=== PATIENT | male | born 1965 | race Caucasian/White ===

== ENCOUNTER 2017-05-02 09:27 | Inpatient (IN) | payer OTHER ==
[~2017-05-02] VITALS: Ht 198.1 cm; Wt 134.5 kg
[2017-05-02 09:36] VITALS: BP 136/86; PULSE 107; RESP 16; O2SAT 98
--- NOTE | 2017-05-02 09:38 | ED.REPORT ---
HPI-Chest Pain 40 and Over Date of Service May 02, 2017 ED Provider: Mary Peck MD The pt is a 52 y/o male w/ a hx of HTN and diabetes presenting to the ED complaining of chest tightness onset 0830 this morning. He is also experiencing diaphoresis, and R rib pain which decreased when he forced himself to vomit. He rates the chest pain as a 4/10 and the R rib pain being more severe. Denies SOB. The pt was seen at [facility] due to 3.5 weeks of constipation and was at [facility] yesterday for 24 hours w/ flatulence, and diarrhea. There was no blood in his stool. Nursing Notes Stated Complaint: CHEST PAIN AND TIGHTNESS Chief Complaint: Chest tightness Nursing Notes Reviewed: Yes Allergies: Uncoded Allergies: CONTRAST USED FOR HEART STUDY (Allergy, Unknown, Nausea and dizziness, 05/02) General Time Seen by MD: 09:37 Chief Complaint Other (Chest tightness) Hx Obtained From: Patient Arrived By: Walk-in Sudden in Onset?: Yes Onset Occurred: 1 - 4 hours ago Symptom Duration: Since onset Recent Healthcare: Recent doctor visit, Recent hospitalization Similar Sx Previous: No Past Medical History Past Medical History Notes: Records from [facility] discharge yesterday are reviewed. 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 Physical Exam Initial Vital Signs Vital Signs (First) Date Time Temp Pulse Resp B/P Pulse Ox O2 Delivery O2 Flow Rate FiO2 05/02/17 09:36 36.5 107 16 136/86 98 Room Air 05/02/17 10:57 2 Initial VS: Reviewed Head / Eyes: Atraumatic, Normocephalic, PERRL ENT: Mucous membranes moist, Conjunctiva normal, No scleral icterus Neck: Supple, Non-tender, Full range of motion Extremities: Vascular intact, Neuro intact, No swelling, No tenderness Neurologic: Alert, Oriented, Nonfocal Psychiatric: Mood/affect normal, Behavior normal, Normal thought content General/Constitutional: Awake, Alert Appearance / Presentation: Positive: Pale Acute distress and having difficulty finding a comfortable position Respiratory / Chest: Atraumatic, Breath sounds NL, Breath sounds = bilat Pt is complaining of R posterior rib pain that is not reproducible on exam Cardiovascular: Heart rate NL, Regular rhythm, Heart sounds NL, No murmurs Abdomen: Atraumatic, Soft, Non-tender Skin: Intact Color / Condition: Positive: Diaphoresis present Interpretation & Diagnostics Interpretation & Diagnostics: on 04/30 stool is dark and guiac + Lab Results Interpretation Result Diagram: 05/02/17 0940 05/02/17 0940 Test 05/02/17 09:40 White Blood Count 10.1th/mm3 (3.8-10.1) Red Blood Count 3.99mil/mm3 (4.40-5.80) Hemoglobin 11.6g/dL (13.8-17.2) Hematocrit 34.1% (41.0-50.0) Mean Corpuscular Volume 85.5fL (81-100) Mean Corpuscular Hemoglobin 29.1pg (27.0-35.0) Mean Corpuscular Hemoglobin Concent 34.0% (32.0-37.0) Red Cell Distribution Width 12.5% (12.3-15.4) Platelet Count 250bil/L (150-400) Neutrophils (%) (Auto) 83.3% (40-74) Lymphocytes (%) (Auto) 10.0% (14-46) Monocytes (%) (Auto) 5.8% (4-12) Eosinophils (%) (Auto) 0.3% (0-5) Basophils (%) (Auto) 0.2% (0-3) Sodium Level 136mEq/L (134-144) Potassium Level 3.9mEq/L (3.5-5.2) Chloride Level 100mEq/L (97-108) Carbon Dioxide Level 21mmol/L (18-29) Blood Urea Nitrogen 13mg/dL (6-24) Creatinine 0.69mg/dL (0.76-1.27) Estimat Glomerular Filtration Rate 129mL/min (>59) Glucose Level 224mg/dL (60-99) Calcium Level 9.1mg/dL (8.5-10.1) Magnesium Level 1.7mg/dL (1.6-2.6) Total Bilirubin 0.3mg/dL (0.0-1.2) Aspartate Amino Transf (AST/SGOT) 32U/L (0-50) Alanine Aminotransferase (ALT/SGPT) 91U/L (0-44) Alkaline Phosphatase 114U/L (25-150) Troponin T 0.010ug/L (0.0-0.011) Total Protein 7.0g/dL (6.4-8.4) Albumin 3.9g/dL (3.4-5.0) ECG Interpretation ECG Interpretation: Rate 110 sinus rhythm LBBB Time: 09:34 Interpreted by: ED physician ECG Interpretation: Rate 84 NSR Prolonged IA interval LBBB Time: 10:25 Interpreted by: ED physician X-Ray Chest Interpretation Chest Xray Interpretation: IMPRESSION: 1. No acute cardiopulmonary disease. Dictated by: Ab Evans M.D. on 05/02/2017 at 10:20 Approved by: Ab Evans M.D. on 05/02/2017 at 10:24 View: Portable, 1 view Interpretation / Wet Read by: Interpret - Radiologist Re-Eval/Medical Decision Med Decision/Clinical Course Presents with significant chest pain pale and diaphoretic with significant right upper quadrant pain that he identifies as a completely separate pain. Initial EKG is a wide complex regular rated 110. Probably a sinus tachycardia with a left bundle branch block. Patient states that he has no cardiac history and has never been told he had any abnormalities on EKG. No records are available His chest pain goes from the 05/04/2001 with a single nitroglycerin and begins to increase again as that nitroglycerin was wearing off. Another sublingual nitros given and nitroglycerin drip is ordered. He has a history of GI bleeding and states that he was just in [facility] yesterday with concerns for GI bleed with full workup done and no evidence of bleeding at all. Cleared discussion regarding this he was discharged home with no evidence of bleeding. Based on that also ordered a heparin drip. He is continuing to have right upper quadrant/right posterior rib pain the chest pain dyspnea diaphoresis is completely resolved while he is on the nitro drip. Records then become available his H&H yesterday was 13.1 and 39 and today is down to 11 and 34. Given that information a rectal exam is done and is notably guaiac positive with very dark but not black stool noticed on the glove. CT scans done at [facility] of the abdomen and pelvis were done on 04/28 and repeated on 04/30. Suggested some inflammatory changes around the duodenum and head of the pancreas without any other significant findings. On reevaluation. Explained concerns with the heparin and the guaiac positive stool heparin was stopped. With the nitro drip his color is much improved his pain is dramatically improved and the diaphoresis is entirely resolved. Through this labs other than the slightly decreased H&H have been unremarkable including a normal initial troponin. Rhythm changes may be related to a rate-related bundle-branch block will certainly need additional evaluation. Have talked with cardiology and have asked them to further evaluate. Given the uncertain diagnoses, chest pain requiring nitro drip, possibility of GI leading he will go to the CCU. He stable at time of transfer and again heparin drip has been stopped. Patient is notified of the reason to start, the positive stool findings, and the recent to stop. All questions have been answered Source of Hx: Family Time of Eval: 10:30 Re-Evaluation/Progress Note: Pt's chest pain has decreased to a 1/10 after nitroglycerin was given Consultation #1: Referral / Consult Name: Randolph Pina MD Consulted With: Cardiology Call Returned at: 11:10 Note: Discussed pt's case w/ Dr. Pina who will consult. Consultation #2: Referral / Consult Name: Ismael Foley MD Consulted With: Hospitalist Call Returned at: 11:12 Machine Operations Supervisor: Will see patient, Agrees with eval, Agrees with plan, Accepts admit Counseled Regarding: Diagnosis, Lab results, Need for admission Discharge & Departure Primary Impression: Chest pain Chest pain type: unspecified Qualified Code: R07.9 - Chest pain, unspecified Additional Impressions: Right upper quadrant abdominal pain GI bleed Disposition: ADMITTED TO HOSPITAL Discharge Condition All VS Reviewed: Yes Condition: Stable Referrals: Ana Rosa York MD Crit Care Except Billable Proc Time Spent: 30-74 minutes Services Performed: Patient management by me, Time spent at bedside, Reviewing test results, Reviewing imaging, Discussing patient care, Documentation in record, Time with fam/surrogate Scribe Attestation Portions of this note were transcribed by Rudolph Tse. I, Dr. Peck personally performed the history, physical exam and medical decision-making; I reviewed and confirmed the accuracy of the information in the transcribed note. copies to: Ana Rosa York MD, Shawna L MD May 02, 2017 09:38 Rudolph Tse May 02, 2017 09:52
[2017-05-02 09:55] LABS: BASOPHILS % (AUTO) 0.2 % (0-3); EOSINOPHILS % (AUTO) 0.3 % (0-5); MONOCYTES % (AUTO) 5.8 % (4-12); Mean Corpuscular Hemoglobin 29.1 pg (27.0-35.0); Mean Corpuscular Volume 85.5 fL (81-100); NEUTROPHILS % (AUTO) 83.3 % (40-74); Platelet Count 250 bil/L (150-400)
[2017-05-02] MEDS ORDERED: LidocaineVisc 2%:Antacid 1:1 10 mL Syringe PO STA (09:59)
[2017-05-02 10:12] LABS: TROPONIN T 0.01 ug/L (0.0-0.011)
[2017-05-02 10:23] LABS: Magnesium 1.7 mg/dL (1.6-2.6)
[2017-05-02] MEDS ORDERED: Nitroglycerin 50 mg/250 mL D5W 50,000 MCG in IV Premix 1 EACH IV ONE (10:26)
--- NOTE | 2017-05-02 10:26 | DRSVH ---
PROCEDURE: X-RAY CHEST ONE VIEW, PORTABLE ([id number]) INDICATIONS: CHEST PAIN TECHNIQUE: One view of the chest was acquired. COMPARISON: None. FINDINGS: Surgical changes and devices: None. Lungs and pleura: No pleural effusions or pneumothorax. Lungs are clear. Mediastinum: Mediastinal contours appear normal. Heart size is normal. Bones and chest wall: No suspicious bony lesions. Overlying soft tissues appear unremarkable. IMPRESSION: 1. No acute cardiopulmonary disease. Dictated by: Ab Evans M.D. on 05/02/2017 at 10:20 Approved by: Ab Evans M.D. on 05/02/2017 at 10:24
[2017-05-02] MEDS ORDERED: Heparin 25K Unit/500mL 0.45 NS 25,000 UNIT in IV Premix 1 EACH IV ONE (10:30)
[2017-05-02] MEDS ORDERED: Ondansetron 2 mg/mL 2 mL Inj IVPUSH ONE (10:30)
[2017-05-02] MEDS ORDERED: Nitroglycerin 2% 1 Gm Ointment TOPICAL ONE (10:30)
[2017-05-02] MEDS ORDERED: Heparin 5,000 Unit/mL Inj IVPUSH ONE (10:30)
[2017-05-02 10:57] VITALS: BP 141/94; PULSE 75; RESP 14; O2SAT 99
[2017-05-02] MEDS ORDERED: Alum-Mag Hydrox-Simeth 30 mL Suspension PO PRN (11:30)
[2017-05-02] MEDS ORDERED: Senna-Docusate 8.6-50 mg Tablet PO PRN (11:30)
[2017-05-02] MEDS ORDERED: Atropine 1 mg/10 mL (Code) Syringe IVPUSH PRN (11:30)
[2017-05-02] MEDS ORDERED: Polyethylene Glycol (PEG) 17 Gm Powder PO PRN (11:30)
[2017-05-02] MEDS ORDERED: Ondansetron 2 mg/mL 2 mL Inj IVPUSH PRN (11:30)
[2017-05-02] MEDS ORDERED: Nitroglycerin 50 mg/250 mL D5W 50,000 MCG in IV Premix 1 EACH IV SCH (11:43)
[2017-05-02] MEDS ORDERED: Heparin 5,000 Unit/mL Inj IVPUSH PRN (11:45)
[2017-05-02] MEDS ORDERED: Heparin 25K Unit/500mL 0.45 NS 25,000 UNIT in IV Premix 1 EACH IV SCH (11:45)
[2017-05-02] MEDS ORDERED: LISI-571 PO (12:02)
[2017-05-02] MEDS ORDERED: SITA100T12 PO (12:02)
[2017-05-02] MEDS ORDERED: SIMV20TA4 PO (12:02)
[2017-05-02] MEDS ORDERED: [UNRECOGNIZED DRUG - OTHER] SQ (12:02)
[2017-05-02 12:12] LABS: Creatine Kinase 77 U/L (21-232)
[2017-05-02 13:00] VITALS: BP 102/68; PULSE 72; RESP 16; O2SAT 99
[2017-05-02] MEDS ORDERED: Glucose 40% Oral Gel 15 Gm Tube PO PRN (13:40)
[2017-05-02] MEDS: 0.9% Sodium Chloride 1,000 ML IV SCH (13:40)
--- NOTE | 2017-05-02 14:09 | NUR ---
Admit Note.. received from ER at 1245 in stable condition. Pt currently on low dose NTG gtt and denies any pain, SOB or nausea. Echo in progress.
[2017-05-02] MEDS ORDERED: LidocaineVisc 2%:Antacid 1:1 10 mL Syringe PO PRN (14:55)
[2017-05-02 16:00] VITALS: BP 139/84; PULSE 70; RESP 18; O2SAT 99
--- NOTE | 2017-05-02 16:27 | DRSVH ---
[facility] [address] [place] [address] Echocardiogram Report Name: RANDY LOPEZ EStudy Date: 05/02/2017 Height: 78 in Hospital Exam Location: [facility] Weight: 324 lb Gender: Male BSA: 2.8 m2 : 1965 Age: 52 yrs BP: 141/ 94 mmHg Reason For Study: CHEST PAIN Ordering Physician: HOSPITALIST [facility] Performed By: Kristal Weaver Referring Physician: Ty Flores Interpretation Summary 1) Mild to moderate concentric left ventricular hypertrophy with normal size and normal function (EF 55-60%. 2) Septal motion is consistent with conduction abnormality. 3) Normal right ventricular size and function. 4) Aortic valve is bicuspid with moderate aortic stenosis (valve area 1.2 cm2, mean gradient 27.8mmHg, severity ratio 0.36). 5) No prior Echo available for comparison. Procedure: A two-dimensional transthoracic echocardiogram with color flow and Doppler was performed. The study quality was technically difficult. A contrast injection of Definity was performed to improve assessment of LV function. Comparison is made with the echocardiogram of 10/20/09. The patient was in normal sinus rhythm during the exam. Left Ventricle: The left ventricle is normal in size. There is mild- moderate concentric left ventricular hypertrophy. The ejection fraction is estimated to be 55-60%. Septal motion is consistent with conduction abnormality. Assessment of diastolic parameters indicates a relaxation abnormality of the left ventricle, consistent with normal filling pressures. Right Ventricle: The right ventricle is normal size. The right ventricular systolic function is normal. Atria: The left atrium is mildly dilated. The right atrium is mildly dilated. There is no Doppler evidence for an interatrial shunt. Mitral Valve: The mitral valve leaflets appear normal. There is no evidence of stenosis, fluttering, or prolapse. There is trace mitral regurgitation. Aortic Valve: The aortic valve is bicuspid. The aortic valve is moderately calcified. Fixed fused right and left cusp. There is moderate aortic stenosis. The calculated aortic valve area is 1.2 cm2. The peak aortic velocity is 3.5 m/sec. The peak aortic velocity on the previous exam was 3.5 m/sec. The aortic valve mean gradient is 28 mmHg. There has been no significant change since the previous study. No aortic regurgitation is present. Tricuspid Valve: The tricuspid valve is normal. There is a trace or physiologic amount of tricuspid regurgitation. Pulmonary artery pressures cannot be estimated because of the lack of a measurable TR jet velocity. Pulmonic Valve: The pulmonic valve leaflets are thin and pliable; valve motion is normal. There is trace pulmonic regurgitation. Great Vessels: The aortic root is normal size. measured size of aortic root is 3.8cm. The ascending aorta is normal in size. The aortic arch is normal in size. The pulmonary is not well visualized. Pericardium/ Pleura There is no pericardial effusion. There is no pleural effusion. MMode/2D Measurements & Calculations LVIDd: 5.1 cm RA long axis LVOT diam: 2.1 cm LVIDs: 2.9 cm LA A2 area: 25.8 cm AoV Opening FS: 42.2 % LA A4 area: 26.5 cm RA area EPSS: 0.96 cm LA length (vol) Ao root diam IVSd: 1.4 cm : 24.2 cm LVPWd: 1.6 cm LA vol: 98.0 ml RA vol asc Aorta Diam LA vol index : 95.8 ml RA Ao Arch Diam (Prox : 34.6 mm2 Trans): 2.7 cm IVC diam: 2.8 cm LV cisneros. diameter/BSA LV sys. diameter/BSA RVD1 (basal) (cm/m^2): 1.8 (cm/m^2): 1.1 Doppler Measurements & Calculations Ao V2 max MV E max lyndon MV E/A: 1.2 PA V2 max : 349.4 cm/sec : 65.7 cm/sec Med Peak E' Lyndon : 100.2 cm/sec Ao max PG MV A max lyndon PA mean PG : 48.8 mmHg : 57.0 cm/sec E/E' med: 9.2 Ao mean PG MV P1/2t: 73.7 msec Lat Peak E' Lyndon PA Accel Time : 27.8 mmHg : 0.10 sec LVOT Max Lyndon E/E' lat: 7.3 : 129.5 cm/sec E/e' average: 8.2 ISAIAS(I,D): 1.2 cm sev ratio MV dec time MV P1/2t max lyndon Ao V2 mean LV V1 max PG : 0.25 sec : 246.3 cm/sec MVA(P1/2t): 3.0 cm2 Ao V2 VTI: 71.6 cm LV V1 VTI ISAIAS(V,D): 1.3 cm2 : 25.8 cm PA V2 mean ISAIAS indexed to BSA : 62.4 cm/sec (cm^2/m^2): 0.45 Reading Physician:04:26 PM
[2017-05-02 16:30] LABS: Creatine Kinase 70 U/L (21-232)
[2017-05-02] MEDS: Sodium Chloride LOK Flush 10 mL Syringe IVFLUSH SCH ×2 (16:30→20:51)
--- NOTE | 2017-05-02 16:34 | PCM.HPMED ---
Subjective Date of Service May 02, 2017 Primary Provider: Admitting Physician: Ismael Foley MD Primary Care Physician: Ismael Almanza MD Attending Physician: Ismael Foley MD Admit Status: From the Emergency Department Chief Complaint: chest pain History of Present Illness: Nnamdi Black is a 52-year-old man with past medical history remarkable for bicuspid aortic valve and left bundle branch block, diabetes mellitus and duodenal ulcers requiring EGD clipping and IR arterial embolization at [facility] in September 2016 who presents with 3-1/2 weeks of chest pain. The patient describes the chest pain is sharp and feeling like "10 tons" on his chest located in the center of his chest he would rate the pain at 12 out of 10 at its worst. The patient states the pain typically last from 15-20 minutes and has occurred without exertion often at night time. The patient denies radiation of the pain and states that it is made worse with a hot pack and made better with sipping cold liquid notably low carbohydrate monster energy drinks. The patient denies the pain becoming worse recently or more frequent in nature. The patient states that this pain feels different than his duodenal ulcers had in September 2016. He denies nausea, vomiting, lightheadedness, syncope , shortness of breath, or palpitations with the pain. The patient states that he has been seen at [facility] and was transferred to [facility] within the last week having 2 CT scans done one with oral and IV contrast and one with just IV contrast. The patient believes that his chest pain is cardiac in nature and not related to his GI tract. He presented to [facility] because nobody had figured out what was wrong with him at [facility] or [facility]. The patient states that when he had duodenal ulcers related to NSAID use and that he was checked for H. pylori infection which was negative. He does not recall any talk of a gastrinoma or Luci-Beatty syndrome. The patient was treated with PPI and sucralafate until January 2017 and which point both were discontinued. Today in the [facility] emergency Department the patient states that he felt better after being started on a nitro drip. At [facility] the patient was given a PPI which seemed to help his pain. He has been having intermittent diarrhea and constipation and denies bright red blood in his stool or dark tarry stool. The patient also has a noted right flank pain that does not seem to be associated with the chest pain. Today in the emergency department the patient was initially considered for ACS rule out and started on a heparin drip but subsequently found to be guaiac positive and the heparin drip was discontinued. Review of Systems: The comprehensive review of systems was obtained and all are negative except for what is included in the history of present illness. Allergies Uncoded Allergies: CONTRAST USED FOR HEART STUDY (Allergy, Unknown, Nausea and dizziness, 05/02) Home Medications Januvia 100mg daily Victoza 1.8mg SQ dailu Lisinopril 5mg daily Simvastatin 20mg daily PMH Duodenal ulcerations x3 reportedly NSAID induced requiring EGD cliping and IR artery embolization intervention at [facility] in September 2016 Diabetes mellitus type 2 Hyperlipidemia Hypertension Obesity Tobacco use dependency LBBB Cardiomegaly Bicuspid aortic valve Surgical History Duodenal ulceration requiring EGD clipping and IR arterial embolization Ingrown left toenail Family History Father had coronary artery disease requiring CABG in his mid 50s Mother has diabetes mellitus and epilepsy Sister who is 65 years old is reportedly healthy Social History Occupation: quality improvement aeronautic Hx Alcohol Use: Yes ("rarely") Hx Substance Use: No Hx Tobacco Use: Yes Smoking Status: Light Tobacco Smoker Years of Smokin Living Arrangement: with Family Exam Vital Signs Vital Sign - Last Date Time Temp Pulse Resp B/P Pulse Ox O2 Delivery O2 Flow Rate FiO2 05/02/17 10:57 75 14 141/94 99 Nasal Cannula 2 05/02/17 09:36 36.5 Exam General: Middle-aged obese male in mild distress due to chest discomfort Eyes: Pupils equal round and reactive to light, extraocular motion intact, anicteric sclera, noninjected conjunctiva HENT: Normocephalic atraumatic, moist mucous membranes without central cyanosis , oropharynx clear without purulent exudate or cobblestoning mucosa Neck: Supple, trachea midline, without thyromegaly or JVD Cardiovascular: Regular rate and rhythm, Systolic murmur noted at right upper sternal border and apex consistent with mitral stenosis, S1-S2 present, no S3-S4 , without rubs or gallops noted Lungs: Clear to auscultation bilaterally without wheezing rales or rhonchi Abdomen: Soft, tenderness noted in the right upper quadrant, nondistended, tympanic to percussion, normal active bowel sounds, without organomegaly Extremities: No cyanosis clubbing or edema noted, pulses intact bilaterally at dorsalis pedis and radial : No Tatum catheter in place Skin: Warm and dry Neuro: Nonfocal neurologic exam Psych: Normal mood and affect Lab and Diagnostics Result Diagram: 05/02/17 1547 05/02/17 0940 X-Rays, CTs and MRIs X-RAY CHEST ONE VIEW, PORTABLE IMPRESSION: 1. No acute cardiopulmonary disease. Approved by: Ab Evans M.D. on 05/02/2017 at 10:24 Cardiac Echo Impressions Echocardiogram Report Interpretation Summary 1) Mild to moderate concentric left ventricular hypertrophy with normal size and normal function (EF 55-60%. 2) Septal motion is consistent with conduction abnormality. 3) Normal right ventricular size and function. 4) Aortic valve is bicuspid with moderate aortic stenosis (valve area 1.2 cm2, mean gradient 27.8mmHg, severity ratio 0.36). 5) No prior Echo available for comparison. Reading Physician:04 :26 PM Assessment & Plan Nnamdi Black is a 52-year-old man with past medical history remarkable for bicuspid aortic valve and left bundle branch block, diabetes mellitus and duodenal ulcers requiring EGD clipping and IR arterial embolization at [facility] in September 2016 who presents with 3-1/2 weeks of recurrent chest pain. Acute Atypical chest pain - Patient describes the pain as substernal in nature feeling sharp and like 10 tons on his chest, however it does not related to exertion but did improve with nitroglycerin drip which was started in the ED and continued for several hours after admission - The patient has a high risk of coronary artery disease/IL given he is diabetic and obese with a family history of coronary artery disease in his father who required a CABG 3 in his mid 50s - The patient was started on a heparin drip in the emergency department but given his history of GI bleed stool guaiac was checked and noted to be positive and therefore heparin drip was discontinued, initial hemoglobin of 11.6 was trended over 6 hours and found to be 10.1 which is likely partly hemodilution and given IV fluids - Troponins and CK-MB are negative 2, EKGs show a consistent chronic left bundle branch block - Chest x-ray failed to reveal any acute cardiopulmonary issues - Patient states that he was beginning to have mild chest pain rated 2/10 while still on the nitroglycerin drip, he was subsequently given a GI cocktail with viscous lidocaine and Maalox with improvement in his symptoms making GI likely, the nitroglycerin drip will be discontinued and the patient subsequently developed recurrent chest pain and hypertension with SBP 180, a nicardipine drip and sublingual nitro were subsequently started - Patient has a history of duodenal ulcers and was reportedly H pylori negative - Records including imaging studies and discharge summaries were obtained from [facility] given his recent workup - Echocardiogram ordered for possible wall motion abnormalities, currently pending - Cardiology consultation given ACS risk and pain improving with Nitroglycerin drip and worsening with Nitro GGT d/c - GI consult given h/o duodenal ulcers requiring urgent intervention and guaiac positive stool - Nitroglycerin sublingual and morphine IV available for pain - Protonix 40 twice a day - Atorvastatin 40 mg immediately for plaque stabilization - Nicardipine drip for possible esophageal spasm given improvement on nitroglycerin Acute on chronic right flank pain - Patient is noted right flank pain which has been ongoing for the last month and made worse with palpation of the right upper quadrant - Patient's liver enzymes are fairly unremarkable besides a mildly elevated ALT of 91, normal AST, alkaline phosphatase, platelets - Patient has had 2 CT abdomen with IV contrast 1 with oral contrast, as well as a right upper quadrant ultrasound which showed a dilated common bile duct approximately 8 mm in diameter and mild pancreatic inflammation as well as duodenitis possibly consistent with choledocholithiasis, with recommendation to follow up with MRCP if required given clinical indication - GI consult given h/o duodenal ulcers requiring urgent intervention and guaiac positive stool Chronic diabetes mellitus type II - Last reported A1c of 6.2 - A1c ordered and pending - Holding outpatient Januvia - Holding outpatient Victoza - Initiating high correction scale lispro Chronic bicuspid aortic valve - Echocardiogram ordered and pending Chronic hyperlipidemia - Lipid panel ordered - Holding outpatient simvastatin 20 mg - Atorvastatin 40 mg immediately for plaque stabilization, will be continued daily Chronic hypertension - Currently holding lisinopril 5 mg - Nicardipine drip DVT prophylaxis: Contraindicated given history of GI bleeds and guaiac positive stool on heparin in the ED GI prophylaxis: Protonix 40 mg twice a day CODE STATUS full The patient is admitted to inpatient status to the CCU given her presenting symptoms, likely diagnosis, possible complications and required treatments expected length of stay is greater than to midnights. Pain Evaluation: Adequate Pain Control GI Prophylaxis: Proton Pump Inhibitor VTE Prophylaxis Indicated: Contraindicated VTE Prophylaxis: SCDs Resuscitation Status: CPR: Attempt Resuscitation Attending Statement The patient was seen and examined together with Dr. Baum on 05/02/2017 and I agree with the history, exam and plan as outlined in the note above. . copies to: Ismael Almanza MD, Nicholas K DO May 02, 2017 16:34 Ismael Foley MD May 02, 2017 18:39
[2017-05-02] MEDS: Pantoprazole 40 mg ER24 Tablet PO SCH (16:47)
[2017-05-02] MEDS: Insulin LISPRO 300 Unit/3 mL Inj SUBQ SCH ×2 (16:50→20:50)
[2017-05-02 17:13] LABS: INR 0.94 ratio
--- NOTE | 2017-05-02 17:28 | PCM.CHPCAR ---
Consult Subjective Date of service May 02, 2017 Date of admit May 02, 2017 at 11:39 Provider Requesting Consult Requesting Provider: Humphrey Baum DO Primary Care Physician Primary Care Physician: Ismael Almanza MD Chief Complaint Chest pain History of Present Illness 52yoM hx HTN, DM, and recent hospitalization for upper GI bleed and abdominal pain presents with acute onset pain. He states he has been dealing with 3 weeks of right upper quadrant abdominal pain and has been at [facility] for workup. He was also seen for bleeding duodenal ulcer requiring interventional radiology in September 2016. The last 5-6 days he reports onset of a sharp substernal chest pain, nonradiating, and intermittent. He states this chest pain would last for about 15-20 minutes, and occurs at rest, occasionally waking him from sleep. He states he has never had this type of chest pain before. It is accompanied with sweats, and chest pressure. He denies nausea, vomiting, lightheadedness, syncope, shortness of breath, or palpitations. Denies dyspnea on exertion. Admission EKG shows sinus rhythm with a left bundle branch block. Chest x-ray was negative. He was initially started on a heparin drip, but given his history of GI bleed and a positive guaiac in the ER, it was stopped. He was placed on a nitro drip for his chest pain, which he reports helped his pain initially, but his chest pain appears to be worsening despite being on the nitro drip. Troponin negative 1. CK and CK-MB negative. PROBLEM LIST: # Chest pain # Rate related left bundle branch block Review of Systems Review of Systems Comprehensive review of systems conducted and was negative except for the pertinent positives listed above. PMH Past Medical History Duodenal ulcerations x3 reportedly NSAID induced requiring EGD cliping and IR artery embolization intervention at [facility] in September 2016 Diabetes mellitus type 2 Hyperlipidemia Hypertension Obesity Tobacco use dependency LBBB Cardiomegaly Bicuspid aortic valve Past Surgical History Duodenal ulceration requiring EGD clipping and IR arterial embolization Ingrown left toenail Bedside Blood Glucose: 121 Scheduled ([Vitoza]) 1.8 MG SQ DAILY (Reported) Lisinopril (Lisinopril) 5 Mg Tablet 5 MG PO DAILY (Reported) Simvastatin (Simvastatin) 20 Mg Tablet 20 MG PO Every Other Day (Reported) Sitagliptin Phos (Januvia) 100 Mg Tablet 100 MG PO DAILY (Reported) Current Inpatient Medications Current Medications Nitroglycerin 0.4 mg Q5MIN PRN SL Last administered on 05/02/17 10:18; Admin Dose 0.4 MG; Start 05/02/17 at 10:30; Stop 05/02/17 at 14:56; Status DC Morphine Sulfate UP TO 10 mg IV in a 4 h... Q15MIN PRN IVPUSH Last administered on 05/02/17 11:12; Admin Dose 4 MG; Start 05/02/17 at 10:30; Stop 05/02/17 at 14:55; Status DC Sodium Chloride 10 ml 10 ml KALPESH IVFLUSH; Start 05/02/17 at 16:30 Sodium Chloride 1,000 ml @ 80 mls/hr [id number] IV Last administered on 05/02/17 13:40; Admin Dose 80 MLS/HR; Start 05/02/17 at 11:26 Aspirin 81 mg DAILY PO; Start 05/03/17 at 08:30 Al Hydrox/Mg Hydrox/Simethicone 30 ml Q6 PRN PO; Start 05/02/17 at 11:30 Ondansetron HCl 4-8 mg prn nausea Q4 PRN IVPUSH; Start 05/02/17 at 11:30 Senna 1 tablet BID PRN PO; Start 05/02/17 at 11:30 Polyethylene Glycol 17 gm DAILY PRN PO; Start 05/02/17 at 11:30 Acetaminophen 325 mg Q6 PRN PO; Start 05/02/17 at 11:30 Nitroglycerin 0.4 mg Q5MIN PRN SL Last administered on 05/02/17 17:03; Admin Dose 0.4 MG; Start 05/02/17 at 11:30 Morphine Sulfate 1-5 mg prn pain not relie... Q5M PRN IVPUSH Last administered on 05/02/17 17:12; Admin Dose 2 MG; Start 05/02/17 at 11:30 Atropine Sulfate please call MD prior to administration Q5MIN PRN IVPUSH; Start 05/02/17 at 11:30 Nitroglycerin/ Dextrose/Premix 250 ml @ 1.5 mls/hr Q24H IV; Start 05/02/17 at 11:43; Stop 05/02/17 at 16:03; Status DC Heparin Sodium (Porcine) Per Protocol for a... PRN PRN IVPUSH; Start 05/02/17 at 11:45; Stop 05/02/17 at 11:56; Status DC Insulin Human Lispro Nutritional Dose to be given pr... [facility] SUBQ; Start at 17:30 Dextrose/Water 250 ml ONCE PRN IV; Start 05/02/17 at 13:40 Pantoprazole 40 mg BIDAC PO Last administered on 05/02/17t 16:47; Admin Dose 40 MG; Start 05/02/17 at 16:30 Atorvastatin Calcium 40 mg HS PO; Start 05/02/17 at 21:00 Miscellaneous 10 ml 10 ml Q6H PRN PO Last administered on 05/02/17 15:02; Admin Dose 10 ML; Start 05/02/17 at 14:55 Nicardipine HCl/ Dextrose/Water 250 ml @ 50 mls/hr Q5H IV; Start 05/02/17 at 16 :55 Allergies: Uncoded Allergies: CONTRAST USED FOR HEART STUDY (Allergy, Unknown, Nausea and dizziness, 05/02) Family History Family History Father had coronary artery disease requiring 3xCABG in his mid 50s and [place] Mother has diabetes mellitus and epilepsy Sister who is 65 years old is reportedly healthy Grandmother with [place] Social History Occupation: quality improvement aeronauticHx Alcohol Use: Yes ("rarely")Hx Substance Use: NoHx Tobacco Use: Yes Smoking Status: Light Tobacco Smoker Years of Smokin Living Arrangement: with Family Exam Vital Signs Vital Sign - Last Date Time Temp Pulse Resp B/P Pulse Ox O2 Delivery O2 Flow Rate FiO2 05/02/17 10:57 75 14 141/94 99 Nasal Cannula 2 05/02/17 09:36 36.5 Objective General appearance: In mild-moderate distress due to pain, constantly moving around bed to become comfortable. HEET: Normocephalic atraumatic, no scleral icterus, tongue midline, mucous membranes moist Neck: supple Cardiovascular: RRR, normal S1 and normal S2, systolic murmur at right upper sternal border, PMI nondisplaced, no JVD, no peripheral edema Respiratory: Good aeration, clear to auscultation bilaterally Abdomen: Soft, RUQ tenderness, nondistended, + bowel sounds Neuro: Alert, no facial droop, tongue midline Psych: Appropriate affect Skin: No rashes on face, neck, and lower extremities Lab and Diagnostics Result Diagram: 05/02/17 1547 05/02/17 0940 Additional Diagnostics: 1) Mild to moderate concentric left ventricular hypertrophy with normal size and normal function (EF 55-60%. 2) Septal motion is consistent with conduction abnormality. 3) Normal right ventricular size and function. 4) Aortic valve is bicuspid with moderate aortic stenosis (valve area 1.2 cm2, mean gradient 27.8mmHg, severity ratio 0.36). 5) No prior Echo available for comparison. Assessment & Plan Assessment # Chest pain: Patient presents with substernal chest pain, not associated with exertion and not relieved with rest or nitroglycerin. This chest pain has been persistent and going on for the past week. This is in the context of history of upper GI bleed in September 2016, RUQ pain, mild to moderate anemia, and guaic positive stools. His troponin and CK-MB are negative and EKG shows a left bundle branch block. Does not appear to be any signs of ischemia. His Echo shows normal LV function with no focal wall motion abnormalities except for left bundle branch block and septal dyssynchrony. His chest pain is likely noncardiac. - Continue to trend troponin - Hold aspirin and heparin due to possible GI bleed - Continue atorvastatin - Recommend expeditiously working up for gastrointestinal causes. - If chest pain persists despite treatment, consider a stress test. - Cardiology will be available if patient has a troponin elevation in the setting of persistent chest pain # Left bundle branch block: Likely chronic. - Lexiscan prior to discharge or as outpatient # Bicuspid aortic valve: Echo showed bicuspid aortic valve with moderate aortic stenosis. Asymptomatic. - Recommend repeat echo in 1-2 years Least call cardiology if there are further questions Pain Evaluation: Adequate Pain Control VTE Prophylaxis Indicated: Contraindicated VTE Prophylaxis: SCDs Resuscitation Status: CPR: Attempt Resuscitation Attending Statement ATTENDING ADDENDUM: I saw, examined, and evaluated the patient with Dr. Juan M Gerber on 05/02/2017 and agree with the note as above along with my edits. Juan M Gerber May 02, 2017 17:28 Randolph Pina MD May 02, 2017 17:50
[2017-05-02] MEDS: NiCARdipine Inj 25 MG in Dextrose 5% 240 ML IV SCH ×2 (18:07→20:48)
--- NOTE | 2017-05-02 18:28 | NUR ---
Pain.. Pt had NTG gtt dc'd at 1600. At 1645 pt noted to have increasing chest discomfort. Med with protonix. Pain continued to escalate. EKG done, pt continued have worsening symptoms with diaphoresis, writhing in the bed, and very restless. Dr Tony updated and S/L NTG was given without effect. Med with morphine 2 mg and pain reduced from a 13/10 to a 7/10. Morphine repeated and this brought pain to a 2/10 which was tolerable. Diaphoresis resolved and pt began to relax. Seen by cardiology and GI consults and pt will have a pill camera placed tomorrow. present at the bedside and updated on the plan of care.
--- NOTE | 2017-05-02 18:46 | PCM.CHPMED ---
Subjective Date of Service: May 02, 2017 Provider requesting consult: Ismael Foley MD Primary Physician: Admitting Physician: Ismael Foley MD Primary Care Physician: Ismael Almanza MD Attending Physician: Ismael Foley MD Admit Status: From the Emergency Department Chief Complaint: Chief Complaint: CHEST PAIN AND TIGHTNESS. GI consulted for possible EGD in patient with anemia , guaiac positive stool, and a history of GI bleeding. 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 He presented to the emergency department with new onset chest tightness that started earlier this morning. Associated symptoms include diaphoresis, one episode of emesis, constipation, RUQ abdominal pain and right flank pain. History obtained via patient as well as review of medical records and somewhat limited due to patient condition and cooperation. At the time of my assessment he appears in pain and states that he has 'already told everybody this information'. What he does tell me is that he has had abdominal pain for the past three weeks, that nobody seems to be able to figure out. He has presented to [facility] twice for similar symptoms. CT scans done at [facility] of the abdomen and pelvis on 04/28 showed some inflammatory changes consistent with duodenitis without any other significant findings. He was started on ciprofloxacin and Flagyl but his PCP reportedly told him to stop this. Two days later he again presented to [facility] and this time he was transferred to [facility] out of concern for GI bleeding and new on set Afib. An abdominal ultrasound showed mildly dilated biliary ducts but no stones or sludge and he was discharged home on 05/01 after workup largely unremarkable. Of note, the patient was admitted to [facility] 09/26-10/02/16 for symptomatic anemia secondary to GI bleed. He was found to have a duodenal ulcer ulcer which was attributed to NSAID use. He underwent IR embolization and was discharged home on pantoprazole as well as sucralfate. He states that he discontinued this after four months because he was told he did not need to take it forever and per the patient's "they prefer to not take medications". Today he states that his pain is not related to eating and not relieved with pain medications. Outside one episode of forced emesis, he denies nausea, vomiting, and hematemesis. Additionally, he denies bloody or dark tarry stool, fever, chills, shortness of breath, dizziness, changes in vision, and NSAID use. He reports mild improvement in his abdominal pain with energy drinks. He is a daily smoker and denies significant alcohol use or illicit drugs. At presentation he was afebrile, tachycardic at times with a HR in the low 100s and normotensive with a BP of 136/86. Maintaining oxygen saturations of 98% on 2 liters nasal cannula. Labs were significant for a negative cardiac enzymes, normal lactic acid, normal white blood cell count, hyperglycemia (224), and mild anemia with a Hb of 11.6. LFTs all within normal limits except for ALT of 91. Stool was guaiac positive. CXR was negative. Initial ECG with wide complex tachycardia and LBBB. This along with improvement in his chest discomfort with nitroglycerin led to Cardiology consult. Discussed case with Dr. Pina from Cardiology, who feels patient's symptoms unlikely cardiac related. PMH Past Medical History Aortic stenosis due to bicuspid aortic valve Hypertension Diabetes mellitus Duodenal ulcer w/ bleeding in September of 2016 - arterial duodenal bleed- requiring interventional radiology Dyslipidemia Morbid obesity, BMI 39.5 Tobacco use LBBB Cardiomegaly Acute blood loss anemia secondary to UGIB NSAID-induced duodenal ulcer Obesity- BMI 35-39.9 Syncopal seizure Stable angina Surgical History Ingrown toenail left foot Home Medications lisinopril 5mg daily simvastatin 20mg night Sitaglipitin 100mg po daily Victoza SC d/c'd metformin 500mg pantoprazole 40mg sucralfate 1g/10ml suspension Allergies: Uncoded Allergies: CONTRAST USED FOR HEART STUDY (Allergy, Unknown, Nausea and dizziness, 05/02) Family History Family History Father with history of coronary artery disease, myasthenia gravis, and diabetes. Mother with history of epilepsy. Social History Hx Alcohol Use: Yes ("rarely")Hx Tobacco Use: Yes Smoking Status: Current Every Day Smoker Living Arrangement: with Family Exam Vital Signs Vital Sign - Last Date Time Temp Pulse Resp B/P Pulse Ox O2 Delivery O2 Flow Rate FiO2 05/02/17 10:57 75 14 141/94 99 Nasal Cannula 2 05/02/17 09:36 36.5 General: Obese, middle-aged man in moderate distress. Diaphoretic and unable to find a comfortable position. Somewhat uncooperative. HEENT: Normocephalic, atraumatic. PERRLA. Anicteric sclera. Mucous membranes moist/pink Lungs: Clear to auscultation bilaterally with no crackles, wheezes, or rhonchi. Cardiovascular: Regular rate/rhythm. 2/6 systolic murmur Abdomen: Soft, nondistended, exquisitely tender diffusely more so epigastrium/ RUQ. No masses. Bowel tones present. Extremities: No edema. Skin: Warm and damp. No obvious rashes or ulcerations Neurological: AOx3, No focal neurologic deficit. Normal speech Psychiatric: Normal affect, agitated mood. Appears in pain. Lab and Diagnostics Labs Laboratory Tests Test 05/02/17 09:40 05/02/17 14:44 White Blood Count 10.1th/mm3 (3.8-10.1) Red Blood Count 3.99mil/mm3 (4.40-5.80) Hemoglobin 11.6g/dL (13.8-17.2) Hematocrit 34.1% (41.0-50.0) Mean Corpuscular Volume 85.5fL (81-100) Mean Corpuscular Hemoglobin 29.1pg (27.0-35.0) Mean Corpuscular Hemoglobin Concent 34.0% (32.0-37.0) Red Cell Distribution Width 12.5% (12.3-15.4) Platelet Count 250bil/L (150-400) Neutrophils (%) (Auto) 83.3% (40-74) Lymphocytes (%) (Auto) 10.0% (14-46) Monocytes (%) (Auto) 5.8% (4-12) Eosinophils (%) (Auto) 0.3% (0-5) Basophils (%) (Auto) 0.2% (0-3) Sodium Level 136mEq/L (134-144) Potassium Level 3.9mEq/L (3.5-5.2) Chloride Level 100mEq/L (97-108) Carbon Dioxide Level 21mmol/L (18-29) Blood Urea Nitrogen 13mg/dL (6-24) Creatinine 0.69mg/dL (0.76-1.27) Estimat Glomerular Filtration Rate 129mL/min (>59) Glucose Level 224mg/dL (60-99) Calcium Level 9.1mg/dL (8.5-10.1) Magnesium Level 1.7mg/dL (1.6-2.6) Total Bilirubin 0.3mg/dL (0.0-1.2) Aspartate Amino Transf (AST/SGOT) 32U/L (0-50) Alanine Aminotransferase (ALT/SGPT) 91U/L (0-44) Alkaline Phosphatase 114U/L (25-150) Total Creatine Kinase 77U/L (21-232) Creatine Kinase MB 2.6ng/mL (0.0-10.4) Creatine Kinase MB % % (0.0-5.0) Troponin T 0.010ug/L (0.0-0.011) Total Protein 7.0g/dL (6.4-8.4) Albumin 3.9g/dL (3.4-5.0) Lipase 16U/L (13-60) Lactic Acid Level 0.7mmol/L (0.4-2.0) Microbiology 05/02/17 MRSA screen- Pending Labs at [facility] 04/30/17: WBC 6.3, Hb 13.0, Hct 39.0, Plt 178, MCV 86.6. Troponin negative Sodium 138 Potassium 4.5 Chloride 106 Bicarb 26 Calcium 8.9 Albumin 3.8 Creatinine 0.78 BUN 16 Serum glucose 97 Alkaline phos 114 AST 98 ALT 135 . Result Diagram: 05/02/17 0940 05/02/17 0940 X-Rays, CTs and MRIs 05/02/17 - X-RAY CHEST ONE VIEW, PORTABLE IMPRESSION: 1. No acute cardiopulmonary disease. Approved by: Ab Evans M.D. on 05/02/2017 at 10:24 . Additional Diagnostics: 05/02/17 - ECHOCARDIOGRAM: INTERPRETATION SUMMARY: 1) Mild to moderate concentric left ventricular hypertrophy with normal size and normal function (EF 55-60%). 2) Septal motion is consistent with conduction abnormality. 3) Normal right ventricular size and function. 4) Aortic valve is bicuspid with moderate aortic stenosis (valve area 1.2 cm2, mean gradient 27.8mmHg, severity ratio 0.36). 5) No prior Echo available for comparison. . 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 Admitted for further evaluation and management of RUQ as well as chest pain. Acute chest pain in a patient with a three week history of RUQ abdominal pain and a history of GI Bleeding. -Based on negative cardiac enzymes, essentially normal LFTs, and improvement in chest pain with nitroglycerin patient's symptoms likely the result of esophageal spasm. -However, based on his prior bleeding duodenal ulcer, mild anemia, and guaiac positive stool it is quite possible he also has upper GI bleeding. -Continue PPI -Clear diet -EGD tomorrow -If EGD negative will consider manometry testing Problems: Attending Statement Patient seen and examined. Attempted to sign off this note last night from home , but [employer] was not functioning properly. Agree with assessment and plan as described by Dr Cardoso. I suspect this may be a motility issue. However, EGD clearly indicated as well. Aruna Cardoso DO May 02, 2017 15:37 Kurtis Monet MD May 03, 2017 08:06
[2017-05-02 20:30] VITALS: BP 130/79; PULSE 76; RESP 18; O2SAT 97
[2017-05-02 21:28] LABS: Creatine Kinase 66 U/L (21-232)
[2017-05-02 23:06] VITALS: BP 116/67; PULSE 64; RESP 12; O2SAT 96
[2017-05-03] VITALS (7 sets, daily range): BP systolic 106–135; BP diastolic 54–115; PULSE 62–87; RESP 10–31; O2SAT 95–100
[2017-05-03] MEDS: 0.9% Sodium Chloride 1,000 ML IV SCH ×2 (01:40→13:47)
[2017-05-03] MEDS: NiCARdipine Inj 25 MG in Dextrose 5% 240 ML IV SCH ×5 (01:41→21:04)
[2017-05-03 02:57] LABS: BASOPHILS % (AUTO) 0.3 % (0-3); EOSINOPHILS % (AUTO) 1.4 % (0-5); MONOCYTES % (AUTO) 8.5 % (4-12); Mean Corpuscular Hemoglobin 28.9 pg (27.0-35.0); Mean Corpuscular Volume 88.2 fL (81-100); NEUTROPHILS % (AUTO) 68.3 % (40-74); Platelet Count 225 bil/L (150-400)
[2017-05-03 03:39] LABS: TROPONIN T 0.01 ug/L (0.0-0.011)
--- NOTE | 2017-05-03 06:44 | NUR ---
Cardiac/Resp Patient had uneventful night, no active bleeding noted, no bowel movements and denied chest pain this shift, rested in bed this shift, Nicardipine titrated off and SBP <140 since gtt turned off, no bowel movement this shift, tolerated clear liquids well yesterday and has been NPO since midnight, will continue to monitor. Addendum: 05/03/17 at 0655 by RAMON MARTINS RN Amended: Links added.
[2017-05-03] MEDS: Pantoprazole 40 mg ER24 Tablet PO SCH ×2 (07:35→17:03)
[2017-05-03] MEDS: Insulin LISPRO 300 Unit/3 mL Inj SUBQ SCH ×4 (07:38→21:03)
[2017-05-03] MEDS: Sodium Chloride LOK Flush 10 mL Syringe IVFLUSH SCH ×3 (08:30→23:08)
--- NOTE | 2017-05-03 12:47 | PCM.ANEPRE ---
Anesthesia Pre-Op Review Reason for Review: V Tach and chest pain prior to EGD Anesthesia Recommendations: Proceed with Procedure Additional Comments 52 yo man with hx UGIB, moderate , and recent run of V-tach who is currently admitted to CCU for chest pain. Cardiac consultation has been completed and no immediate interventions indicated. No elevation of cardiac enzymes. Pt reports chest pain during V tach but also worse chest pain during the night without dysrhythmia. Pt reports EGD in Sep without issue. In light of risk presented by potential GI bleeding the EGD and/or colonoscopy should not be delayed for further cardiac workup Chart Reviewed by: Eduar Reddy MD May 03, 2017 12:47
[2017-05-03] MEDS ORDERED: Phenylephrine/NS 100 mCg/mL 10 mL Syringe IVPUSH ONE (13:19)
[2017-05-03] MEDS ORDERED: Propofol 10,000 mCg/mL 20 mL Inj ONE (13:19)
[2017-05-03] MEDS ORDERED: Lactated Ringer's 1,000 ML IV ONE (14:20)
--- NOTE | 2017-05-03 14:41 | PCM.HPANE ---
Patient Data Surgeon Admitting Provider:Ismael Foley MD Attending Provider:Ismael Foley MD Primary Care Physician:Ismael Almanza MD Other Provider: Reason for Visit Chest Pain Abdominal Pain Ht/WT & BMI Height (Feet): 6 Height (Inches): 6.00 Weight (Kilograms): 144.000 Body Mass Index 36.73 Allergies Uncoded Allergies: CONTRAST USED FOR HEART STUDY (Allergy, Unknown, Nausea and dizziness, 05/02) Past Anesthesia History Anesthesia History: Denies:: Anesthesia Reactions Diabetes History Hx Diabetes?: Yes (TYPE 2) Current Bedside Blood Glucose: 135 MRSA MRSA: No Medications Reported Medications Sitagliptin Phos (Januvia)100 Mg [id number] Mg PO DAILY #30 05/02/17 [Vitoza] No Conflict Check1.8 Mg SQ DAILY 05/02/17 Lisinopril 5 Mg Tablet5 Mg PO DAILY #90 05/02/17 Simvastatin 20 Mg [id number] Mg PO Every Other Day #45 05/02/17 History History of ENT Problems?: No HEENT History: Denies:: Abnormal Airway Denture Type: None Teeth Condition: Broken Teeth Tooth Decay Hx of Heart Problems?: Yes Cardiovascular History: Positive for:: Heart Murmur Hypertension Denies:: Cardiac Surgery Chest Pain Congestive Heart Failure Irregular Heartbeat Pacemaker Thrombophlebitis Other Cardiac History: Moderate , Atypical chest pain, V-tach Hx of Respiratory Problem?: No Respiratory History: Denies:: Asthma Hx Neurologic Problems?: No Hx of GI Problems?: Yes Other GI Pertinent History: Upper GI bleed, duodenal ulcer Hx of Problems?: No Male Hx: Denies:: Prostate Problems Scrotal Mass Testicular Surgery Hx Musculoskeletal Problems?: No Musculoskeletal History: Positive for:: Musculoskeletal Trauma (45 YEARS AGO FX R ARM) Denies:: Back Injury Joint Replacement Hx of Psycho/Social Problems?: Yes Psycho Social History: Positive for:: Hx Depression Denies:: Anxiety Bipolar Disorder Suicide Attempt Hx Surgeries?: Yes (IR FOR DUODENAL ULCER) Hx Any Other Health Problems?: Yes Other History: Positive for:: Hospitalization (BLEEDING ULCERS) Denies:: Cancer History Blood Transfusions: Positive for:: Accept Blood Products? Blood Transfusions Denies:: Blood Transfuse Reaction Hx Diabetes: Yes (TYPE 2)Bedside Blood Glucose: 135 Occupation: quality improvement aeronauticHx Alcohol Use: Yes ("rarely")Hx Substance Use: No Smoking Status: Current Every Day Smoker Approx How Many Cigarettes/day: 1-2 cigarettes daily Stop/Bang Treated for Sleep Apnea?: No Do You Have a CPAP Machine?: No S-Snoring: Do You Snore Loudly: Yes T-Tired: feel tired, fatigued: No O-Obsered: Observed not breath: No P-Blood Pressure: treated: Yes B- Body Mass Index > 35 kg/m2: Yes A- Age over 50: Yes N- Neck Large Circumference: Yes G- Gender Male: Yes ROSALIA Total Score: 6 Risk Assessment Category Category 1A: Patient has history of documented sleep apnea, and HAS NOT received any narcotic, sedative or anesthesia administration during this stay. Category 1B: Patient has history of documented sleep apnea, and HAS received any narcotic , sedative or anesthesia administration during this stay Category 2: Patient has SUSPECTED Obstructive Sleep Apnea, and HAS received any narcotic , sedative or anesthesia administration during this stay. Category 3: Patient has SUSPECTED Obstructive Sleep Apnea and HAS NOT received narcotic, sedative or anesthesia administration during this stay. Category 4: Outpatient in Procedural Areas with known sleep apnea or who screen positive for High Risk via the STOP/BANG questionnaire. Exam Exam Vital Signs Vital Signs Date Time Temp Pulse Resp B/P Pulse Ox O2 Delivery O2 Flow Rate FiO2 05/03/17 14:32 87 31 134/115 100 Nasal Cannula 4 05/03/17 12:00 36.7 69 10 106/54 97 Room Air 05/03/17 08:00 68 05/03/17 07:40 36.4 62 13 135/82 99 Room Air General Appearance: Alert, Oriented X3, Cooperative, Severe Distress HEENT/AIRWAY: MP 3 Lungs: Normal Air Movement Heart: Regular Rate/Rhythm, Murmur Meds/Labs/Diagnostics Admission Meds Current Medications Sodium Chloride (Saline Jacquelin Flush) 10 ml JACQUELIN IVFLUSH Last administered on 20:51; Start 05/02/17 at 16:30 Pantoprazole (Protonix) 40 mg BIDAC PO Last administered on 05/03/17 07:35; Start 05/02/17 at 16:30 Atorvastatin Calcium 40 mg 40 mg HS PO Last administered on 05/02/17 20:34; Start 05/02/17 at 21:00 Nicardipine HCl 25 mg/Dextrose/ Water 250 ml @ 50 mls/hr Q5H IV Last administered on 05/02/17 18:07; Start 05/02/17 at 16:55 Lactated Ringer's (Lr) 1,000 ml @ ud STK-MED ONCE IV Last administered on 14:20; Start 05/03/17 at 14:20; Stop 05/03/17 at 14:22; Status DC Bedside Blood Glucose: 135 Labs Test 05/02/17 09:40 05/02/17 14:44 05/02/17 15:47 05/02/17 20:46 Prothrombin Time 10.0sec (8.1-12.5) Prothromb Time International Ratio 0.94ratio Magnesium Level 1.7mg/dL (1.6-2.6) Lipase 16U/L (13-60) Lactic Acid Level 0.7mmol/L (0.4-2.0) Total Creatine Kinase 66U/L (21-232) Creatine Kinase MB 2.0ng/mL (0.0-10.4) Creatine Kinase MB % % (0.0-5.0) Test 05/03/17 02:40 White Blood Count 7.3th/mm3 (3.8-10.1) Red Blood Count 3.56mil/mm3 (4.40-5.80) Hemoglobin 10.3g/dL (13.8-17.2) Hematocrit 31.4% (41.0-50.0) Mean Corpuscular Volume 88.2fL (81-100) Mean Corpuscular Hemoglobin 28.9pg (27.0-35.0) Mean Corpuscular Hemoglobin Concent 32.8% (32.0-37.0) Red Cell Distribution Width 12.8% (12.3-15.4) Platelet Count 225bil/L (150-400) Neutrophils (%) (Auto) 68.3% (40-74) Lymphocytes (%) (Auto) 21.2% (14-46) Monocytes (%) (Auto) 8.5% (4-12) Eosinophils (%) (Auto) 1.4% (0-5) Basophils (%) (Auto) 0.3% (0-3) Sodium Level 139mEq/L (134-144) Potassium Level 4.1mEq/L (3.5-5.2) Chloride Level 103mEq/L (97-108) Carbon Dioxide Level 22mmol/L (18-29) Blood Urea Nitrogen 7mg/dL (6-24) Creatinine 0.63mg/dL (0.76-1.27) Estimat Glomerular Filtration Rate 143mL/min (>59) Glucose Level 146mg/dL (60-99) Calcium Level 8.6mg/dL (8.5-10.1) Total Bilirubin 0.4mg/dL (0.0-1.2) Aspartate Amino Transf (AST/SGOT) 30U/L (0-50) Alanine Aminotransferase (ALT/SGPT) 75U/L (0-44) Alkaline Phosphatase 92U/L (25-150) Troponin T 0.010ug/L (0.0-0.011) Total Protein 6.2g/dL (6.4-8.4) Albumin 3.5g/dL (3.4-5.0) Plan Impression Patient chart reviewed, patient interviewed and anesthestic plan with risks, benefits, and alternatives discussed, and informed consent obtained. NPO per Anesth. Guidelines: Yes ASA Physical Status: ASA3 Plus Emergency Anesthetic Plan: MAC Bene/Risks/Altern/Consents: Yes HP Complete Prior to Induction: Yes Eduar Freedman MD May 03, 2017 14:41
--- NOTE | 2017-05-03 16:14 | ENDO ---
[address] [address] ENDOSCOPY PROCEDURE PATIENT: RANDY LOPEZ : 1965 MR#: [id number] ADMIT: 05/02/2017 JOB ID: [id number] DATE: 05/03/2017 PROCEDURE: Esophagogastroduodenoscopy with biopsies. INDICATIONS: A 52-year-old male admitted for evaluation of chest pain. He was recently seen at [facility] and then at [facility] in [place] for symptoms of abdominal pain. Imaging on CAT scan both on the and 30 of April revealed some inflammation in the region of the duodenum. He has a history of severe hemorrhagic peptic ulcer disease in this area requiring Interventional Radiology for embolization. I have not seen the procedure note for this but I understand he also had Endoclip deployment, although that is an uncertainty at this point. Has had intermittent severe crushing chest pain here at our facility and EGD was, therefore, requested in that this did not appear to be cardiac in nature. EQUIPMENT: GIF H 180 J. SEDATION: Monitored anesthesia as provided by Dr. Eduar Freedman. COMPLICATIONS: None identified. PROCEDURAL INFORMATION: After the risks and benefits were explained, written and verbal informed consent was obtained. The patient was brought into the endoscopy suite and placed into the left lateral decubitus position. Sedation was achieved as above. The scope introduced into the mouth through the bite block, and advanced under direct visualization to stomach. From there we carefully were able to reduce the scope past the duodenal sweep into the second portion. The scope was slowly withdrawn to carefully examine the mucosa for any defects or lesions. Retroflexed views were accomplished in the stomach. The stomach was decompressed. The scope removed from the patient who tolerated the procedure well. FINDINGS: 1. Esophagus: The squamocolumnar junction was judged to be at approximately 39 cm from the incisors. No acute erosive changes. No ulcers. No strictures. No mass lesions. 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 One of these tongues was biopsied to exclude specialized intestinal metaplasia. Of particular note, I did not appreciate any significant mucosal abnormality throughout the body of the esophagus and there was no suggestion of hypertension at the lower esophageal sphincter mechanism. 2. Stomach: No significant retained food debris. No outlet obstruction. No ulcers. No mass lesions. Mild diffuse nonspecific gastropathy was appreciated and biopsy was acquired for exclusion of Helicobacter or any other underlying histopathology. Retroflexed views of the LES disclosed a sliding hiatal hernia. 3. Duodenum: Immediately upon evaluation of the duodenal bulb, it became apparent that there was an orifice and likely more correctly classified fistulous opening within the anterior duodenal bulb, where bile was freely flowing out of said orifice. This was immediately adjacent. A large perhaps up to 1 cm, well excavated ulcer with copious amounts of pill and food debris within the base. As a consequence of the adherent debris, we did not get a great look at all of these structures within the base. I was able to navigate around the ulcer into the second portion of the duodenum and identify the location of the major papilla which appeared morphologically within normal limits. We were able to take a small biopsy from the edge of the ulcer and submit this for histopathology. During this component of the examination, I requested Dr. Lynn have a look while we had the scope in this location and he was able to review the video with me. ENDOSCOPIC DIAGNOSES: 1. Large excavated duodenal ulcer. 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 3. Mild gastropathy. 4. Small hiatal hernia. 5. 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 RECOMMENDATIONS: 1. Await histopathology. 2. If Helicobacter is found, it will need to be eradicated with standard triple therapy. 3. It is noted that the patient came off of his PPI and sucralfate earlier this summer but has continued aspirin in light of his cardiac history. Difficult to know whether he ever healed the ulcer initially identified in September or whether this is a recurrent ulcer. Fortunately it has not been hemorrhagic at present but he should remain on b.i.d. proton pump inhibitor. 4. The smoothie diet as tolerated. 5. As far as the chest pain is concerned, I strongly suspect that the pathology in his proximal duodenum to be the primary source and believe he will likely need surgical intervention here. That said, if he continues to respond to medical therapy and there is a possibility that he has ulcer healing with medical compliance, he may not need any specific intervention. In the interim, however, I think better imaging of the area would be appropriate and I have requested an MRCP. Hopefully we do not get significant scatter artifact from what appears to be clips in the area. 6. Surgical consultation with Dr. Lynn was requested and he indicates he will kindly see the patient.
--- NOTE | 2017-05-03 16:28 | PCM.ANEP1 ---
Post Anesthesia PACU Phase 1 Assessment Vital Signs Vital Signs Date Time Temp Pulse Resp B/P Pulse Ox O2 Delivery O2 Flow Rate FiO2 05/03/17 14:32 87 31 134/115 100 Nasal Cannula 4 05/03/17 12:00 36.7 69 10 106/54 97 Room Air Anesthetic Administered: MAC Level of Alertness: Awake, talking Pain: No Pain Scale Score: 0 Nausea or Vomiting: No CV Function & Hydration Stable: Yes Airway Device: None Lungs: Normal Air Movement PACU Phase 2 Assessment Complications: No Follow up Care: N/A Patient Instructions Provided: N/A Eduar Freedman MD May 03, 2017 16:28
--- NOTE | 2017-05-03 17:17 | PCM.PNMED ---
Subjective Date of Service May 03, 2017 Subjective Subjective: Patient states that he is feeling much better this morning, currently off the nicardipine and nitroglycerin drips. Shortly after the morning the patient experienced an episode of chest pain radiating to the right lower quadrant, reproducible with palpation. Morphine was given as well as nitroglycerin which were able to control the pain. Patient is scheduled for EGD later today. Events Overnight: No acute events overnight. ROS: Chest pain, shortness of breath, right upper quadrant abdominal pain. Denies fever/chills, nausea/vomiting, headache, weakness, increased swelling in hands or feet. Exam Vital Signs Vital Sign - Last Date Time Temp Pulse Resp B/P Pulse Ox O2 Delivery O2 Flow Rate FiO2 05/03/17 14:32 87 31 134/115 100 Nasal Cannula 4 05/03/17 12:00 36.7 Intake and Output 05/02/17 05/02/17 05/03/17 Cumulative From/Thru 15:00 23:00 07:00 05/02/17 13:24 - 05/03/17 05:43 Intake Total 1800 ml 1800 ml Output Total 2400 ml 2400 ml Balance -600 ml -600 ml Intake Oral 440 ml 440 ml IV Total 1360 ml 1360 ml Output Urine Total 2400 ml 2400 ml Exam General: Moderate distress during episode of chest pain otherwise no acute distress, well-developed, well-nourished Head: Normocephalic, atraumatic. External ears without defect. Eyes: Pupils equal, round, and reactive to light and accommodation. Anicteric sclerae, moist conjunctivae. Neck: Normal range of motion, no lymphadenopathy noted, no JVD Cardiovascular: Regular rate and rhythm with moderate systolic murmur, no rubs, or gallops appreciated Pulmonary: Clear to auscultation bilaterally with no crackles, wheezes, or rhonchi. Normal respiratory effort with no use of accessory muscles. Abdomen: Bowel tones present. Soft, obese, mild right upper quadrant tenderness , nondistended. Extremities: No clubbing, cyanosis, edema Skin: Normal temperature, turgor, and texture; no rash, ulcers, or subcutaneous nodules appreciated. Neurological: Cranial nerves grossly intact. Reflexes, coordination, and sensory function within normal limits. Normal muscle strength, tone, and bulk. Psychiatric: Normal mood and affect. Alert and oriented to person, place, and time IVs and Medications IV Fluids 2800 mL normal saline delivered with IV medications. Medications Reviewed: Medications were reviewed in detail Lab and Diagnostics Result Diagram: 05/03/1723905/03/17 024 X-Rays, CTs and MRIs X-RAY CHEST ONE VIEW, PORTABLE IMPRESSION: 1. No acute cardiopulmonary disease. Approved by: Ab Evans M.D. on 05/02/2017 at 10:24 Cardiac Echo Impressions Echocardiogram Report Interpretation Summary 1) Mild to moderate concentric left ventricular hypertrophy with normal size and normal function (EF 55-60%. 2) Septal motion is consistent with conduction abnormality. 3) Normal right ventricular size and function. 4) Aortic valve is bicuspid with moderate aortic stenosis (valve area 1.2 cm2, mean gradient 27.8mmHg, severity ratio 0.36). 5) No prior Echo available for comparison. Reading Physician:04 :26 PM Assessment & Plan Nnamdi Black is a 52-year-old man with past medical history remarkable for bicuspid aortic valve and left bundle branch block, diabetes mellitus and duodenal ulcers requiring EGD clipping and IR arterial embolization at [facility] in September 2016 who presents with 3-1/2 weeks of recurrent chest pain. Acute Atypical chest pain, present on admission, active - High risk of ACS/NM given diabetes, obesity, positive family history - History of duodenal ulcers, H pylori negative - Troponins and CK-MB are negative 2, - EKGs show a consistent chronic left bundle branch block - Chest x-ray negative - Echocardiogram shows EF 55-60%, other results as above - Chest pain decreased with GI cocktail suggesting GI pathology, - Nitro drip initiated on admission, patient reports alleviation - Heparin drip initiated on arrival however due to guaiac positive heparin drip was discontinued - Repeat chest pain post the nitroglycerin drip DC, patient started on nicardipine drip and sublingual nitro which were discontinued on 04/30 - On 05/03 patient developed increasing chest pain associated with ventricular tachycardia lasting approximately 1-2 minutes, repeat EKG did not capture this. Patient reports that this is similar to his previous episodes. - Nicardipine drip reinitiated - Continue SL Nitro and morphine IV for pain - Protonix 40 twice a day - Atorvastatin 40 mg - Cardiology consultation, recommendations appreciated - GI consulted, EGD scheduled for 05/03 Acute on chronic right flank pain, present on admission, active - Right flank pain ongoing for 1 month, worse with palpation of the RUQ - Mildly elevations in ALT, other liver enzymes within normal limits - CT abdomen with and without contrast, right upper quadrant ultrasound which showed a dilated common bile duct approximately 8 mm in diameter and mild pancreatic inflammation as well as duodenitis possibly consistent with choledocholithiasis, with recommendation to follow up with MRCP if required given clinical indication - GI consult given h/o duodenal ulcers requiring urgent intervention and guaiac positive stool Chronic diabetes mellitus type II, active - Last reported A1c of 6.2 - A1c ordered and pending - Holding outpatient Januvia - Holding outpatient Victoza - Initiating high correction scale lispro Chronic bicuspid aortic valve, stable - Echocardiogram results as above Chronic hyperlipidemia, stable - Lipid panel ordered - Holding outpatient simvastatin 20 mg - Atorvastatin 40 mg daily Chronic hypertension, stable - Currently holding lisinopril 5 mg - Nicardipine drip DVT prophylaxis: Contraindicated given history of GI bleeds and guaiac positive stool on heparin in the ED GI prophylaxis: Protonix 40 mg twice a day CODE STATUS: Full code Disposition: Patient will likely require 2-3 days of medical management prior to discharge home. GI Prophylaxis: Proton Pump Inhibitor VTE Prophylaxis: SCDs VTE Mechanical Devices: Intermittant Pneumatic CD Resuscitation Status: CPR: Attempt Resuscitation Attending Statement The patient was seen and examined together with Dr. Pozo on 05/03/2017 and I agree with the history, exam and plan as outlined in the note above. . Soy Pozo DO May 03, 2017 17:16 Ismael Foley MD May 04, 2017 07:18 GI Prophylaxis: Proton Pump Inhibitor VTE Prophylaxis: SCDs VTE Mechanical Devices: Intermittant Pneumatic CD Resuscitation Status: CPR: Attempt Resuscitation Soy Pozo DO May 03, 2017 17:16
--- NOTE | 2017-05-03 18:25 | NUR ---
Pain/endo.. Pt had a noted run of accelerated abberant beats on tele this am... pt had no symptoms to report when questioned and had no idea his HR was fast. This was self resolving back to his prior rhythm but then pt proceeded to have acute 13/10 chest pain. EKG done, given Sl MD VERONICA at the bedside and what resolved his pain was 4 mg of MS. Pt taken to endo for endoscopy this afternoon and returned in stable condition. Has since had one episode of chest pain resolved by 4mg MS and nicardipine gtt. Pt will be going for an MRCP at 1945. Is now allowed a smoothie type diet and is taking clears without problem. at bedside and updated with plan of care.
--- NOTE | 2017-05-03 20:21 | DRSVH ---
PROCEDURE: MR ABDOMEN MRCP INDICATIONS: ABDOMINAL PAIN TECHNIQUE: Coronal HASTE through the abdomen, axial 2-D FLASH in- and [id number], and breath-hold T2 FSE with fat saturation through the biliary system and pancreas. Oblique coronal and axial thin-slice HASTE, radial thick-slab HASTE centered on the extrahepatic bile ducts. Intravenous secretin: Not requested. COMPARISON: [facility], CT, ABDOMEN/PELVIS WITH CONTRAST, 04/30/2017, 5:01. FINDINGS: Image quality: Excellent. Pancreas and biliary system: There is a slight prominence of the visualized common bile duct. Motion obscures the distal most aspect into the duodenum. There is a persistent appearance of inflammation a nd edema within the second portion of the duodenum and pancreatic head, as identified on CT exam of . It is questionably slightly extended towards the pancreatic body in comparison to prior exam. Pancreas is normal in morphology, without adjacent soft tissue edema. Pancreatic duct is normal in caliber, without developmental anomalies. Gallbladder is unremarkable. Other solid organs: Liver and spleen are normal in size. No adrenal nodules. Both kidneys are norm al in size, without hydronephrosis. Nodes and vessels: No retroperitoneal or mesenteric adenopathy by size criteria. Aorta and inferior vena cava are normal in size. Bowel and peritoneum: Unenhanced bowel loops are normal in caliber. No free fluid. Lung bases: No basal pleural effusions. Heart size is normal. Bones and soft tissues: No ventral hernias. Bone marrow is of normal overall signal. IMPRESSION: 1. Persistent appearance of inflammatory change at the second portion of the duodenum and pancreatic head. Today's exam demonstrates a questionable appearance of inflammation extending towards the pancr eatic body, although minimal interval progression at best. Findings are suggestive of duodenitis vers us pancreatitis with secondary adjacent inflammatory change. 2. Minimal prominence of the common bile duct, overall nonspecific. No stones are identified within t he common bile duct or gallbladder. Dictated by: Prudence Bennett M.D. on 05/03/2017 at 20:16 Approved by: Prudence Bennett M.D. on 05/03/2017 at 20:20
[2017-05-04] VITALS (7 sets, daily range): BP systolic 96–147; BP diastolic 63–75; PULSE 60–75; RESP 13–19; O2SAT 96–99
--- NOTE | 2017-05-04 02:41 | CONS ---
[address] [address] CONSULTATION REPORT PATIENT: RANDY LOPEZ : 1965 MR#: [id number] ADMIT: 05/02/2017 JOB ID: [id number] DATE OF SERVICE: 05/03/2017 CHIEF COMPLAINT: A 52-year-old gentleman with duodenal ulcers seen in consultation at the request of Kurtis Monet MD. HISTORY OF PRESENT ILLNESS: The patient is a 52-year-old gentleman who developed weakness and anemia in September of this year eventually leading to the diagnosis of bleeding duodenal ulcer. By the time he was treated [facility] at that time, he reports massive hematemesis requiring endoscopy and Interventional Radiology procedures to control the bleeding. He was apparently discharged home at that time on sucralfate and Protonix but later when he saw a orthopedic surgeon in January he was told he did not need a repeat endoscopy and he could stop his medications. Most recently, he started developing pain on his right side of his abdomen and chest and in the upper abdomen or chest in the middle prompting a workup looking for gallbladder disease and heart disease. He had some imaging done in the hospital and he was admitted to [facility] on May 02, 2017 and was evaluated by Cardiology and felt like his symptoms are not cardiac in origin. Dr. 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 The patient's discomfort right now is not as bad as it was before. OTHER MEDICAL PROBLEMS: 1. Aortic stenosis due to bicuspid aortic valve. 2. Hypertension. 3. Diabetes. 4. Hyperlipidemia. 5. Obesity. 6. Left bundle branch block. 7. Cardiomegaly. 8. Syncope. 9. Angina. PRIOR OPERATIONS: Excision of ingrown toenail to the left foot. MEDICATIONS AT HOME: 1. Lisinopril. 2. Simvastatin. 3. Sitagliptin. 4. Victoza. ALLERGIES: CONTRAST. FAMILY HISTORY: Heart disease, myasthenia and diabetes. Mother had seizures. SOCIAL HISTORY: He does smoke, but consumes alcohol rarely. REVIEW OF SYSTEMS: Twelve-point review of systems negative other than the pertinent positives noted in the history of present illness and other medical problems. INVESTIGATIONS: Labs from May 03, 2017: WBC 7.3, down from 10.1, hemoglobin 10.3, platelet count 225 creatinine 0.63, glucose 146, ALT 75, bilirubin 0.4. Lipase from May 02, 2017 was 16. INR was 0.94. H. pylori serology is pending. CT abdomen and pelvis April 30, 2017, showed numerous metallic foreign bodies involving the first portion of the duodenal and the head of the pancreas consistent with prior endoscopic and Interventional Radiology interventions. There is no obvious dilation of the pancreatic duct. This was thought to be stable from the appearance a couple of days ago. There were some inflammatory changes around the second portion of the duodenal also. There was no evidence of free intra-abdominal air. MRCP performed May 03, 2017 showed slight prominence of visualized common bile duct with persistent appearance of inflammation and edema within the second portion of the duodenum and pancreatic head. The pancreas is otherwise thought to be normal in morphology. PHYSICAL EXAMINATION: A 52-year-old gentleman, in no acute distress. BMI 36.7, temperature 36.3, pulse 78, blood pressure 122/82, saturating 96% on room air. Eyes: Normal pupils, conjunctivae. Ears, nose, and throat: Normal external appearance. Neck: No lymphadenopathy or jugular venous distention. Heart: Regular rate and rhythm. Respiratory: Normal effort, clear to auscultation. Gastrointestinal: Tender to deep palpation in the upper abdomen. Neurologic: No gross deficits. Psych: Alert, appropriate. Musculoskeletal: Normal strength in extremities. Skin: Normal. ASSESSMENT AND PLAN: A 52-year-old male with incompletely treated duodenal ulcer likely from benign disease. Helicobacter pylori testing pending and would continue maximal acid suppression medical therapy with a proton pump inhibitor for now and monitor his liver function studies. As long as he continues to be symptomatically okay, we should be able to gradually advance his diet. We will followup on the biopsies to make sure there is no malignancy and we will also make sure his abdominal symptoms and exam do not worsen during the hospitalization. Please call us with any questions. Also please obtain the hospitalization records from September from [facility] including the Interventional Radiology procedures and endoscopy for further clarification on his anatomy. CUATE
[2017-05-04 02:52] LABS: BASOPHILS % (AUTO) 0.4 % (0-3); EOSINOPHILS % (AUTO) 1.5 % (0-5); MONOCYTES % (AUTO) 8.9 % (4-12); Mean Corpuscular Hemoglobin 29.1 pg (27.0-35.0); NEUTROPHILS % (AUTO) 62.9 % (40-74); Platelet Count 194 bil/L (150-400)
[2017-05-04 03:22] LABS: TROPONIN T 0.01 ug/L (0.0-0.011)
[2017-05-04 03:33] LABS: Magnesium 1.7 mg/dL (1.6-2.6); Phosphorus 3.9 mg/dL (2.5-4.9)
[2017-05-04] MEDS: NiCARdipine Inj 25 MG in Dextrose 5% 240 ML IV SCH ×2 (03:50→08:09)
[2017-05-04] MEDS: 0.9% Sodium Chloride 1,000 ML IV SCH ×2 (03:50→13:26)
--- NOTE | 2017-05-04 05:48 | NUR ---
MRI/pain: Pt was transported to MRI per bed for MRCP. Pt tolerated activity well. When back in room pt did have some increased right sided chest pain rated 9/10 and was given 4mg morphine, which resolved pain. Nicardipine gtt ran at 5mg/hr until midnight when rate was decreased to 2.5mg/hr because SPB dropped into the 90s. The MAP did remain above 65 during the whole night.
[2017-05-04] MEDS: Insulin LISPRO 300 Unit/3 mL Inj SUBQ SCH ×4 (08:00→21:46)
[2017-05-04] MEDS: Pantoprazole 40 mg ER24 Tablet PO SCH ×2 (08:08→16:30)
[2017-05-04] MEDS: Sodium Chloride LOK Flush 10 mL Syringe IVFLUSH SCH ×3 (08:09→21:46)
--- NOTE | 2017-05-04 08:41 | NUR ---
Denies pain/Nicardipine gtt @ 2.5mg/h BP 118/71. SR 60s, LBBB. States has no pain @ present. Diet advanced to soft ADA per Surgeon.
--- NOTE | 2017-05-04 08:45 | NUR ---
a.m. [id number] per fingerstick
--- NOTE | 2017-05-04 10:08 | PROG NOTE ---
[address] [address] PROGRESS NOTE PATIENT: RANDY LOPEZ : 1965 MR#: [id number] ADMIT: 05/02/2017 JOB ID: [id number] DATE: 05/04/2017 SUBJECTIVE: The patient is seen in followup. He states that he feels "95% better." He has no nausea. He is not complaining of significant abdominal pain at rest. He is tolerating a clear liquid diet. OBJECTIVE: Temperature 36.0 pulse 65, blood pressure 118/71, saturation 99% on room air. General: He is resting in bed in no acute distress. Chest is clear. Heart: Regular rate and rhythm. No murmurs. Abdomen is obese, but soft, nontender, nondistended. There is no guarding. LABORATORIES: White count 7.3, hematocrit 30.8, creatinine 0.60, glucose 130, procalcitonin 0.06. ASSESSMENT AND PLAN: A 52-year-old man with large chronic duodenal ulcer. He is doing well clinically. I do not think that he should have urgent surgery for this problem. I think he should be maximally medically managed including aggressive acid suppression. If his biopsy comes back positive for H pylori, then he should be treated with triple therapy for that. The importance of smoking cessation was encouraged to the patient. Because of the proximity of his ulcer to his common bile duct, I suspect that if he does require surgical treatment, he may require bile duct resection and reconstruction. For that reason, if it looks like he is going to require surgical therapy, I recommend transfer to a tertiary care facility with hepatobiliary surgery specialists on hand.
--- NOTE | 2017-05-04 12:00 | NUR ---
Rossy dhaliwal dc'd/p.o. Diltiazem administered. VVS; pt denies chest pain or abd pain/discomfort. Taking diet well. Pt & Spouse updated by RN; information reviewed about Diltiazem with pt's questions answered.
--- NOTE | 2017-05-04 12:15 | NUR ---
Bedside EF=718/Sliding scale Ins coverage as per order.
[2017-05-04] MEDS: Diltiazem CD 120 mg ER24 Capsule PO SCH (12:52)
--- NOTE | 2017-05-04 14:17 | PCM.PNMED ---
Subjective Date of Service May 04, 2017 Subjective Subjective: Patient states he is feeling much better today, has concerns about returning to work, which were briefly discussed. We also discussed the results of his scans and procedures completed yesterday as well as plans for discharge. Events Overnight: No acute events overnight. ROS: Denies fever/chills, nausea/vomiting, headache, weakness, abdominal pain, chest pain, shortness of breath, increased swelling in hands or feet. Exam Vital Signs Vital Sign - Last Date Time Temp Pulse Resp B/P Pulse Ox O2 Delivery O2 Flow Rate FiO2 05/04/17 04:30 36.5 60 14 96/63 96 Room Air 05/03/17 14:32 4 Intake and Output 05/03/17 05/03/17 05/04/17 Cumulative From/Thru 15:00 23:00 07:00 05/02/17 13:24 - 05/04/17 05:45 Intake Total 400 ml 1010 ml 2234 ml 5444 ml Output Total 1650 ml 2475 ml 6525 ml Balance 400 ml -640 ml -241 ml -1081 ml Intake Oral 740 ml 1180 ml IV Total 400 ml 1010 ml 1494 ml 4264 ml Output Urine Total 1650 ml 2475 ml 6525 ml Exam General: Moderate distress during episode of chest pain otherwise no acute distress, well-developed, well-nourished Head: Normocephalic, atraumatic. External ears without defect. Eyes: Pupils equal, round, and reactive to light and accommodation. Anicteric sclerae, moist conjunctivae. Neck: Normal range of motion, no lymphadenopathy noted, no JVD Cardiovascular: Regular rate and rhythm with moderate systolic murmur, no rubs, or gallops appreciated Pulmonary: Clear to auscultation bilaterally with no crackles, wheezes, or rhonchi. Normal respiratory effort with no use of accessory muscles. Abdomen: Bowel tones present. Soft, obese, mild right upper quadrant tenderness , nondistended. Extremities: No clubbing, cyanosis, edema Skin: Normal temperature, turgor, and texture; no rash, ulcers, or subcutaneous nodules appreciated. Neurological: Cranial nerves grossly intact. Reflexes, coordination, and sensory function within normal limits. Normal muscle strength, tone, and bulk. Psychiatric: Normal mood and affect. Alert and oriented to person, place, and time IVs and Medications IV Fluids 1500 mL normal saline delivered with IV medications. Medications Reviewed: Medications were reviewed in detail Medications High-risk medications include: Nicardipine drip Lab and Diagnostics Result Diagram: 05/04/1723905/04/17239 X-Rays, CTs and MRIs X-RAY CHEST ONE VIEW, PORTABLE IMPRESSION: 1. No acute cardiopulmonary disease. Approved by: Ab Evans M.D. on 05/02/2017 at 10:24 Cardiac Echo Impressions Echocardiogram Report Interpretation Summary 1) Mild to moderate concentric left ventricular hypertrophy with normal size and normal function (EF 55-60%. 2) Septal motion is consistent with conduction abnormality. 3) Normal right ventricular size and function. 4) Aortic valve is bicuspid with moderate aortic stenosis (valve area 1.2 cm2, mean gradient 27.8mmHg, severity ratio 0.36). 5) No prior Echo available for comparison. Reading Physician:04 :26 PM Assessment & Plan Nnamdi Black is a 52-year-old man with past medical history remarkable for bicuspid aortic valve and left bundle branch block, diabetes mellitus and duodenal ulcers requiring EGD clipping and IR arterial embolization at [facility] in September 2016 who presents with 3-1/2 weeks of recurrent chest pain. 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 large duodenal ulcer - Nicardipine and nitroglycerin drips alleviating, GI believes this is due to sphincter of Oddie dysfunction and suggest diltiazem 120 mg ER daily - Protonix 40 twice a day - Atorvastatin 40 mg - GI consulted, recommends continuing PPI for now, further recommendations follow Acute on chronic right flank pain, present on admission, active - Right flank pain ongoing for 1 month, worse with palpation of the RUQ - Mildly elevations in ALT, other liver enzymes within normal limits - CT abdomen with and without contrast, right upper quadrant ultrasound showing pancreatitis/duodenitis - MRCP shows no obstruction, as above - EGD completed on 05/03 shows biliary fistulas and large duodenal ulcer - GI consult recommends continuing PPI for now, further recommendations follow Chronic diabetes mellitus type II, active - Last reported A1c of 6.2 - Holding outpatient Januvia - Holding outpatient Victoza - Initiating high correction scale lispro Chronic bicuspid aortic valve, stable - Echocardiogram results as above Chronic hyperlipidemia, stable - Holding outpatient simvastatin 20 mg - Atorvastatin 40 mg daily Chronic hypertension, stable - Currently holding lisinopril 5 mg - 120mg Diltiazem ER DVT prophylaxis: Contraindicated given history of GI bleeds and guaiac positive stool on heparin in the ED GI prophylaxis: Protonix 40 mg twice a day CODE STATUS: Full code Disposition: Patient will likely require 2-3 days of medical management prior to discharge home. Pain Evaluation: Adequate Pain Control GI Prophylaxis: Proton Pump Inhibitor VTE Prophylaxis: SCDs VTE Mechanical Devices: Intermittant Pneumatic CD Resuscitation Status: CPR: Attempt Resuscitation Attending Statement The patient was seen and examined together with Dr. Pozo on 05/04/2017 and I agree with the history, exam and plan as outlined in the note above. Soy Pozo DO May 04, 2017 07:36 Ismael Foley MD May 04, 2017 16:48
--- NOTE | 2017-05-04 14:26 | PROG NOTE ---
[address] [address] PROGRESS NOTE PATIENT: RANDY LOPEZ : 1965 MR#: [id number] ADMIT: 05/02/2017 JOB ID: [id number] DATE: 05/04/2017 SUBJECTIVE: The patient is doing well. No further chest pain. OBJECTIVE: Vital signs stable. Patient in no distress. Conversational. LABS: Hemoglobin stable. LFTs stable. ALT was 62. 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 Visually at CT imaging, endoclips are present. I did not see these under direct inspection, but of course of the ulcer bed was full of debris and pill debris. The patient should be discharged on b.i.d. Protonix. I have encouraged him to stop smoking. I think he should take sucralfate 4 times a day x2 weeks. As long as he is doing well clinically with no persisting symptoms, I would like to repeat an endoscopy in the next 3-4 weeks to see if he is overall improving. I have recommended Cardizem CD 120 mg daily to control the likely SOD spasm that has been the source for his noncardiac chest pains. I agree that if the patient does ultimately need surgery that hepatobiliary expertise would be prudent/appropriate. The patient is encouraged to maintain a soft consistency diet. COMMENT: This is a no-charge physician visit. Today is the sabbath. Please do not submit a physician charge for this particular note.
--- NOTE | 2017-05-04 16:43 | NUR ---
Social Work Note: Initial Assessment Data& Assessment: EMR Reviewed. CONE TENDER met with pt and pt family at bedside to discuss discharge planning, CONE TENDER role explained and Discharge Planning Checklist provided. Nnamdi Black is a 52 year old male admitted on 05/02/2017 for chest pain and abdominal pain. Pt has [employer] insurance coverage and sees Ismael Almanza MD for primary care. Pt lives in [place] with his significant other and is independent at baseline with all ADL's and no DME needs. Pt drives. Pt does not have HH or SNF hx. Pt does not have LTC insurance. Pt is a and is 40% [facility]. Pt declined DPOA/AD paperwork. Pt denies any other needs at this time. Pt Significant Other to transport home when medically ready. MD does not identify any concerns for pt capacity for self care at this time. CONE TENDER to continue to follow if pt needs or MD orders arise. Plan: Anticipated discharge home via POV when medically ready. Pt denies any other needs. CONE TENDER to continue to follow if pt needs or MD orders arise. ENOCH Fernandez Addendum: 05/04/17 at 1647 by JOSE THOMSON Amended: Links added.
--- NOTE | 2017-05-04 17:15 | NUR ---
[id number]
[2017-05-04] MEDS: Sucralfate 1,000 mg Tablet PO SCH (21:43)
[2017-05-05] MEDS: 0.9% Sodium Chloride 1,000 ML IV SCH (00:22)
[2017-05-05 03:10] VITALS: BP 113/67; PULSE 77; RESP 16; O2SAT 97
[2017-05-05 03:26] LABS: Mean Corpuscular Hemoglobin 29.1 pg (27.0-35.0); Mean Corpuscular Volume 87.2 fL (81-100)
--- NOTE | 2017-05-05 05:38 | NUR ---
Pain/BP Pt has remained pain free throughout the shift. Pt's VSS with pt's last BP 113/67.
[2017-05-05 06:03] VITALS: PULSE 74
[2017-05-05] MEDS: Pantoprazole 40 mg ER24 Tablet PO SCH (07:03)
[2017-05-05] MEDS: Sucralfate 1,000 mg Tablet PO SCH ×2 (07:39→11:19)
[2017-05-05] MEDS: Insulin LISPRO 300 Unit/3 mL Inj SUBQ SCH ×2 (07:40→11:15)
[2017-05-05 07:42] VITALS: BP 114/74; PULSE 60; RESP 18; O2SAT 98
[2017-05-05 08:18] VITALS: PULSE 60
[2017-05-05] MEDS: Sodium Chloride LOK Flush 10 mL Syringe IVFLUSH SCH (09:12)
[2017-05-05] MEDS: Diltiazem CD 120 mg ER24 Capsule PO SCH (09:12)
--- NOTE | 2017-05-05 10:28 | PROG NOTE ---
[address] [address] PROGRESS NOTE PATIENT: RANDY LOPEZ : 1965 MR#: [id number] ADMIT: 05/02/2017 JOB ID: [id number] DATE: 05/05/2017 SUBJECTIVE: The patient is seen in followup. He feels good today, back to his normal self. He has no nausea. He is eating. He has no abdominal pain. OBJECTIVE: Temperature 36.5, pulse 60, blood pressure 114/74, saturation 98% on room air. In general, he is resting in bed in no acute distress. Chest is clear. Heart regular rate and rhythm, no murmurs. Abdomen is soft, nontender, nondistended. LABORATORIES: White count is 7.9, hematocrit 31.2. Creatinine 0.64. Glucose 139. ASSESSMENT AND PLAN: A 52-year-old man with large duodenal ulcer. He does not need urgent surgical intervention. My hope is that he will not require surgical intervention at all. Maximal medical therapy has been prescribed and it is in place including twice daily proton pump inhibitor, sucralfate, and smoking cessation. The plan from Dr. Monet is to repeat endoscopy in 3-4 weeks and see how things look.
--- NOTE | 2017-05-05 11:16 | NUR ---
Social Work- Readiness for D/C/Multidisciplinary Rounds Data: EMR reviewed. Pt is on day 3 of hospitalization. Pt discussed in multidisciplinary rounds, pt is medically stable to d/c today. No d/c orders active at this time. SW met with pt and spouse at bedside regarding d/c plan. Pt is agreeable to d/c and eager to return home. Pt denied any questions or concerns about d/c. Pt to d/c home via POV, spouse to transport. No d/c needs identified. SW will continue to follow. Assessment: Pt who is independent with ADLs and self-care Plan: Pt to d/c home with spouse to transport via POV. No d/c needs identified at this time. SW continues to follow. ENOCH Rudd
[2017-05-05 11:19] VITALS: BP 147/80; PULSE 74; RESP 16; O2SAT 99
[2017-05-05] MEDS ORDERED: PANT40TA3 PO (12:32)
[2017-05-05] MEDS ORDERED: DILT120C83 PO (12:32)
[2017-05-05] MEDS ORDERED: SUCR1TAB30 PO (12:32)
--- NOTE | 2017-05-05 12:32 | NUR ---
Social Work- Discharge Data: EMR reviewed. Pt is on day 3 of hospitalization. Pt is medically stable to d/c today. Discharge orders are active. Pt to d/c home via POV, spouse to transport. No d/c needs identified. Assessment: Pt who is independent with ADLs and self-care Plan: Pt to d/c home with spouse to transport via POV. No d/c needs identified at this time. ENOCH Rudd
--- NOTE | 2017-05-05 12:53 | PCM.DIMED ---
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 Mild gastropathy Small hiatal hernia Chronic diabetes mellitus type II Chronic bicuspid aortic valve Chronic hyperlipidemia Chronic hypertension Medication Instructions Additional med instructions You may take your previously prescribed prescription drugs as directed Three new medications have been started Protonix 40mg twice daily with breakfast and diner, you should discuss titrating off this medication with your PCP and GI doctors to avoid rebound acid reflux disease Sucralfate 1000mg with meals and at bedtime (4 times daily total), this medication may be able to stopped in 1 month or less as your ulcer heals but discuss this with your leather skinner prior Diltiazem ER 120mg daily for your chest pain, this medication may be able to stopped in 1 month or less as your ulcer heals but discuss this with your leather skinner prior Test Results Test Results Have your PCP follow up with the H. Pylori Testing which is currently still pending Diet Discharge Diet: Diabetic, Other (low acid, caffeine, alcohol diet as these may cause worsening acid indigestion) Activity Discharge Activity: No restrictions Call your provider Call your provider for: Bleeding, Chest pain, Vomitting, Other (dark tarry stools or bright red blood in your stool) Patient Instructions Patient Instructions Have your PCP call the hospital for the results of your H. Pylori testing as the final results are not available yet. You should take all your newly prescribed medications ad directed, you should also try and stop smoking as this can worsen gastroesophageal reflux symptoms and delay your ulcer healing Follow-up plan Please follow up with your PCP on May 10 to discuss your recent hospitalization as well as new medications. A copy of your discharge summary will be sent to him for his review. Please follow up with leather skinner Dr. Monet in 2 weeks to discuss your recent hospitalization and discuss obtaining a repeat upper endoscopy Follow-up Provider: Ismael Almanza MD Follow-up with PCP in: 1 week (May 10) Provider: Kurtis Monet MD Follow-up in: 2 weeks (to schedule a follow up EGD) Ismael Foley MD 05/05/17 3805: Discharge Instructions Attending's Statement The patient was seen and examined together with Dr. Baum on 05/05/2017 and I agree with the history, exam and plan as outlined in the note above. . Humphrey Baum DO May 05, 2017 12:53 Ismael Foley MD May 05, 2017 14:55
--- NOTE | 2017-05-05 13:13 | NUR ---
Discharge Pt d/c home with , ambulating off with an aide at 1312. Pt denied pain, VSS, IV d/cd. All personal belongings left home with pt. Discharge info discussed with pt, all questions answered. Emphasis made on stopping smoking and resuming soft, more bland-like diet. Pt stated willingness to be compliant.
--- NOTE | 2017-05-07 14:28 | PCM.DC.MED ---
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 No acute cardiopulmonary disease. Approved by: Ab Evans M.D. on 05/02/2017 at 10:24 Cardiac Echo Impression Echocardiogram Report Interpretation Summary 1) Mild to moderate concentric left ventricular hypertrophy with normal size and normal function (EF 55-60%. 2) Septal motion is consistent with conduction abnormality. 3) Normal right ventricular size and function. 4) Aortic valve is bicuspid with moderate aortic stenosis (valve area 1.2 cm2, mean gradient 27.8mmHg, severity ratio 0.36). 5) No prior Echo available for comparison. Reading Physician:04 :26 PM Invasive Procedures ENDOSCOPY PROCEDURE ENDOSCOPIC DIAGNOSES: 1. Large excavated duodenal ulcer. 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 3. Mild gastropathy. 4. Small hiatal hernia. 5. 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 RECOMMENDATIONS: 1. Await histopathology. 2. If Helicobacter is found, it will need to be eradicated with standard triple therapy. 3. It is noted that the patient came off of his PPI and sucralfate earlier this summer but has continued aspirin in light of his cardiac history. Difficult to know whether he ever healed the ulcer initially identified in September or whether this is a recurrent ulcer. Fortunately it has not been hemorrhagic at present but he should remain on b.i.d. proton pump inhibitor. 4. The smoothie diet as tolerated. 5. As far as the chest pain is concerned, I strongly suspect that the pathology in his proximal duodenum to be the primary source and believe he will likely need surgical intervention here. That said, if he continues to respond to medical therapy and there is a possibility that he has ulcer healing with medical compliance, he may not need any specific intervention. In the interim, however, I think better imaging of the area would be appropriate and I have requested an MRCP. Hopefully we do not get significant scatter artifact from what appears to be clips in the area. 6. Surgical consultation with Dr. Lynn was requested and he indicates he will kindly see the patient. Kurtis Monet MD 05/03/17 1537 <Electronically signed by Kurtis Monet MD> 05/03/17 1508 Brief History Nnamdi Black is a 52-year-old man with past medical history remarkable for bicuspid aortic valve and left bundle branch block, diabetes mellitus and duodenal ulcers requiring EGD clipping and IR arterial embolization at [facility] in September 2016 who presents with 3-1/2 weeks of chest pain. The patient describes the chest pain is sharp and feeling like "10 tons" on his chest located in the center of his chest he would rate the pain at 12 out of 10 at its worst. The patient states the pain typically last from 15-20 minutes and has occurred without exertion often at night time. The patient denies radiation of the pain and states that it is made worse with a hot pack and made better with sipping cold liquid notably low carbohydrate monster energy drinks. The patient denies the pain becoming worse recently or more frequent in nature. The patient states that this pain feels different than his duodenal ulcers had in September 2016. He denies nausea, vomiting, lightheadedness, syncope , shortness of breath, or palpitations with the pain. The patient states that he has been seen at [facility] and was transferred to [facility] within the last week having 2 CT scans done one with oral and IV contrast and one with just IV contrast. The patient believes that his chest pain is cardiac in nature and not related to his GI tract. He presented to [facility] because nobody had figured out what was wrong with him at [facility] or [facility]. The patient states that when he had duodenal ulcers related to NSAID use and that he was checked for H. pylori infection which was negative. He does not recall any talk of a gastrinoma or Luci-Beatty syndrome. The patient was treated with PPI and sucralafate until January 2017 and which point both were discontinued. Today in the [facility] emergency Department the patient states that he felt better after being started on a nitro drip. At [facility] the patient was given a PPI which seemed to help his pain. He has been having intermittent diarrhea and constipation and denies bright red blood in his stool or dark tarry stool. The patient also has a noted right flank pain that does not seem to be associated with the chest pain. Today in the emergency department the patient was initially considered for ACS rule out and started on a heparin drip but subsequently found to be guaiac positive and the heparin drip was discontinued. Hospital Course Nnamdi Black is a 52-year-old man with past medical history remarkable for bicuspid aortic valve and left bundle branch block, diabetes mellitus and duodenal ulcers requiring EGD clipping and IR arterial embolization at [facility] in September 2016 who presents with 3-1/2 weeks of recurrent chest pain. Acute Atypical chest pain, present on admission, active - High risk of ACS/OR given diabetes, obesity, positive family history - History of duodenal ulcers, H pylori negative - Troponins and CK-MB are negative 2, - EKGs show a consistent chronic left bundle branch block - Heparin drip initiated on arrival however due to guaiac positive heparin drip was discontinud - Chest x-ray negative - Echocardiogram shows EF 55-60%, other results as above - Chest pain decreased with GI cocktail suggesting GI pathology, - EGD completed on 05/03 shows biliary fistulas and large duodenal ulcer - Nicardipine and nitroglycerin drips alleviating, GI believes this is due to sphincter of Oddie dysfunction and suggest diltiazem 120 mg ER daily - Protonix 40 twice a day - Atorvastatin 40 mg - GI consulted, recommends continuing PPI max dose Protonix 40mg twice daily, Sucralafate 1g QIDWA Acute on chronic right flank pain, present on admission, active - Right flank pain ongoing for 1 month, worse with palpation of the RUQ - Mildly elevations in ALT, other liver enzymes within normal limits - CT abdomen with and without contrast, right upper quadrant ultrasound showing pancreatitis/duodenitis - MRCP shows no obstruction, as above - EGD completed on 05/03 shows biliary fistulas and large duodenal ulcer - GI consulted, recommends continuing PPI max dose Protonix 40mg twice daily, Sucralafate 1g QIDWA Chronic diabetes mellitus type II, active - Last reported A1c of 6.2 - Holding outpatient Januvia - Holding outpatient Victoza - Initiating high correction scale lispro Chronic bicuspid aortic valve, stable - Echocardiogram results as above Chronic hyperlipidemia, stable - Holding outpatient simvastatin 20 mg - Atorvastatin 40 mg daily Chronic hypertension, stable - Currently holding lisinopril 5 mg - 120mg Diltiazem ER Exam Vital Signs (Last) Date Time Temp Pulse Resp B/P Pulse Ox O2 Delivery O2 Flow Rate FiO2 05/05/17 11:19 36.5 74 16 147/80 99 Room Air 05/03/17 14:32 4 Exam General: Middle-aged obese male in no acute distress Eyes: Pupils equal round and reactive to light, extraocular motion intact, anicteric sclera, noninjected conjunctiva HENT: Normocephalic atraumatic, moist mucous membranes without central cyanosis , oropharynx clear without purulent exudate or cobblestoning mucosa Neck: Supple, trachea midline, without thyromegaly or JVD Cardiovascular: Regular rate and rhythm, Systolic murmur noted at right upper sternal border and apex consistent with mitral stenosis, S1-S2 present, no S3-S4 , without rubs or gallops noted Lungs: Clear to auscultation bilaterally without wheezing rales or rhonchi Abdomen: Soft, nontender, nondistended, tympanic to percussion, normal active bowel sounds, without organomegaly Extremities: No cyanosis clubbing or edema noted, pulses intact bilaterally at dorsalis pedis and radial : No Tatum catheter in place Skin: Warm and dry Neuro: Nonfocal neurologic exam Psych: Normal mood and affect Test 05/02/17 09:40 05/02/17 14:44 05/02/17 15:47 05/02/17 20:46 Prothrombin Time 10.0sec (8.1-12.5) Prothromb Time International Ratio 0.94ratio Lipase 16U/L (13-60) Gastrin 14pg/mL (0-115) Helicobacter pylori IgG Antibody <0.9U/mL (0.0-0.8) Helicobacter pylori IgM Antibody <9.0units (0.0-8.9) Total Creatine Kinase 66U/L (21-232) Creatine Kinase MB 2.0ng/mL (0.0-10.4) Creatine Kinase MB % % (0.0-5.0) Test 05/04/17 02:40 9/3/17 03:15 Neutrophils (%) (Auto) 62.9% (40-74) Lymphocytes (%) (Auto) 25.9% (14-46) Monocytes (%) (Auto) 8.9% (4-12) Eosinophils (%) (Auto) 1.5% (0-5) Basophils (%) (Auto) 0.4% (0-3) Lactic Acid Level 0.6mmol/L (0.4-2.0) Phosphorus Level 3.9mg/dL (2.5-4.9) Magnesium Level 1.7mg/dL (1.6-2.6) Troponin T 0.010ug/L (0.0-0.011) Procalcitonin 0.06ng/mL (0.00-0.08) White Blood Count 7.9th/mm3 (3.8-10.1) Red Blood Count 3.58mil/mm3 (4.40-5.80) Hemoglobin 10.4g/dL (13.8-17.2) Hematocrit 31.2% (41.0-50.0) Mean Corpuscular Volume 87.2fL (81-100) Mean Corpuscular Hemoglobin 29.1pg (27.0-35.0) Mean Corpuscular Hemoglobin Concent 33.3% (32.0-37.0) Red Cell Distribution Width 12.8% (12.3-15.4) Platelet Count 264bil/L (150-400) Sodium Level 140mEq/L (134-144) Potassium Level 4.3mEq/L (3.5-5.2) Chloride Level 104mEq/L (97-108) Carbon Dioxide Level 23mmol/L (18-29) Blood Urea Nitrogen 12mg/dL (6-24) Creatinine 0.64mg/dL (0.76-1.27) Estimat Glomerular Filtration Rate 141mL/min (>59) Glucose Level 139mg/dL (60-99) Calcium Level 8.7mg/dL (8.5-10.1) Total Bilirubin 0.3mg/dL (0.0-1.2) Aspartate Amino Transf (AST/SGOT) 20U/L (0-50) Alanine Aminotransferase (ALT/SGPT) 52U/L (0-44) Alkaline Phosphatase 100U/L (25-150) Total Protein 6.0g/dL (6.4-8.4) Albumin 3.5g/dL (3.4-5.0) Discharge Medications Discharge Medications ([Vitoza]) 1.8 MG SQ DAILY (Reported) Diltiazem ER (Cardizem CD) 120 Mg Cap.er.24h 120 MG PO DAILY Prescribed by: DEIRDRE FRANCIS DO Lisinopril (Lisinopril) 5 Mg Tablet 5 MG PO DAILY (Reported) Pantoprazole DR (Pantoprazole DR) 40 Mg Tablet.dr 40 MG PO BIDAC Prescribed by: DEIRDRE FRANCIS DO Simvastatin (Simvastatin) 20 Mg Tablet 20 MG PO Every Other Day (Reported) Sitagliptin Phos (Januvia) 100 Mg Tablet 100 MG PO DAILY (Reported) Sucralfate (Carafate) 1 Gm Tablet 1,000 MG PO ACHS Prescribed by: DEIRDRE FRANCIS, DO Additional med instructions You may take your previously prescribed prescription drugs as directed Three new medications have been started Protonix 40mg twice daily with breakfast and diner, you should discuss titrating off this medication with your PCP and GI doctors to avoid rebound acid reflux disease Sucralfate 1000mg with meals and at bedtime (4 times daily total), this medication may be able to stopped in 1 month or less as your ulcer heals but discuss this with your pyroglazer prior Diltiazem ER 120mg daily for your chest pain, this medication may be able to stopped in 1 month or less as your ulcer heals but discuss this with your pyroglazer prior Followup Plan Disposition: home Follow-up plan Please follow up with your PCP on May 10 to discuss your recent hospitalization as well as new medications. A copy of your discharge summary will be sent to him for his review. Please follow up with pyroglazer Dr. Monet in 2 weeks to discuss your recent hospitalization and discuss obtaining a repeat upper endoscopy Discharge Diet: Diabetic, Other (low acid, caffeine, alcohol diet as these may cause worsening acid indigestion) Discharge Activity: No restrictions Patient Instructions Have your PCP call the hospital for the results of your H. Pylori testing as the final results are not available yet. You should take all your newly prescribed medications ad directed, you should also try and stop smoking as this can worsen gastroesophageal reflux symptoms and delay your ulcer healing Follow-up Provider: Ismael Almanza MD Follow-up with PCP in: 1 week (May 10) Provider: Kurtis Monet MD Follow-up in: 2 weeks (to schedule a follow up EGD) Time spent Greater than 30 minutes was spent in preparation of discharge with greater than 50% of that time dedicated to patient counseling and coordination of care. . Attending Statement The patient was seen and examined together with Dr. Francis on 05/05/2017 and I agree with the history, exam and plan as outlined in the note above. . copies to: Ismael Almanza MD, Nicholas K DO May 07, 2017 14:28 Ismael Foley MD May 08, 2017 10:58
--- NOTE | 2017-05-09 16:11 | PATH ---
SURGICAL PATHOLOGY Attending Physician:Ramírez Reed CASE STATUS: Signed Out PATIENT NAME: RANDY LOPEZ PID: [id number] : 1965 DATE COLLECTED:05/03/2017 00:00 SPECIMEN: 1: Gastric, Biopsy 2: Esophagus, Biopsy 3: Duodenum, Biopsy CLINICAL HISTORY: 1). GASTRIC BIOPSY, RULE OUT H.PYLROI 2). DISTAL ESOPHAGUS BIOPSY 3). DUODENAL ULCER MARGIN BIOPSY FINAL DIAGNOSIS: 1. Stomach, Biopsy: Gastric body mucosa with chronic gastritis. Negative for Helicobacter organism by immunohistochemistry. Negative for intestinal metaplasia, dysplasia or malignancy. 2. Distal Esophagus, Biopsy: Squamocolumnar junctional mucosa with chronic inflammation. Negative for intestinal metaplasia, dysplasia or malignancy. 3. Duodenal Ulcer Margin, Biopsy: Duodenal mucosa with foveolar metaplasia. Negative for dysplasia or malignancy. ICD10: R10.9 GROSS DESCRIPTION: Received three formalin-filled containers, each labeled with the patient's name. 1. Received in formalin, labeled with the patient's name and "gastric" is one fragment of torres soft tissue measuring 0.4 x 0.2 x 0.1 cm. The fragment is totally submitted in cassette 1A. 2. Received in formalin, labeled with the patient's name and "GE" is one fragment of torres soft tissue measuring 0.4 x 0.2 x 0.1 cm. The fragment is totally submitted in cassette 2A. 3. Received in formalin, labeled with the patient's name and "duod" is one fragment of torres soft tissue measuring 0.4 x 0.2 x 0.1 cm. The fragment is totally submitted in cassette 3A. [id number]) MICRO DESCRIPTION: Part 1: An immunohistochemical stain is performed to evaluate for Helicobacter organisms and is negative. A control stain shows appropriate reactivity. * This test was developed and its performance characteristics determined by [employer]. It has not been cleared or approved by the U.S. Food and Drug Administration. The FDA has determined that such clearance or approval is not necessary. This test is used for clinical purposes. It should not be regarded as investigational or for research. ICD-9 CODES: CPT CODES: 1: 15766, 22117 2: 45558 3: 41990 Electronically Signed Out Som Almonte MD, Ph.D. [facility] [address], [place] [address] Technical component performed at [facility], [address], [place], [address]
== END 2017-05-05 13:20 | disposition home or self-care (01) | DRG 392 ==
LOC: SED 10:34 → CCU 11:39 → PCC 05-03 08:46 → CCU 05-03 10:25 → PCC 05-04 11:12
PROVIDERS: ADMIT Internal Medicine; ATTEND Internal Medicine
PROC: 0DB38ZX Excision of Lower Esophagus, Via Natural or Artificial Opening Endoscopic, Diagnostic (ICD-10-PCS; 2017-05-03)
PROC: 0DB68ZX Excision of Stomach, Via Natural or Artificial Opening Endoscopic, Diagnostic (ICD-10-PCS; 2017-05-03)
PROC: 0DB98ZX Excision of Duodenum, Via Natural or Artificial Opening Endoscopic, Diagnostic (ICD-10-PCS; principal; 2017-05-03 16:15)
DX: K29.80 Duodenitis without bleeding (principal); K31.6 Fistula of stomach and duodenum; Q23.1 Congenital insufficiency of aortic valve; K26.7 Chronic duodenal ulcer without hemorrhage or perforation; R07.89 Other chest pain; I10 Essential (primary) hypertension; E11.8 Type 2 diabetes mellitus with unspecified complications; K83.4 Spasm of sphincter of Oddi; E78.5 Hyperlipidemia, unspecified; F17.200 Nicotine dependence, unspecified, uncomplicated; I44.7 Left bundle-branch block, unspecified; K44.9 Diaphragmatic hernia without obstruction or gangrene; Z82.49 Family history of ischemic heart disease and other diseases of the circulatory system